=== PATIENT | male | born 1950 | race Caucasian/White ===

== ENCOUNTER → 2023-07-31 11:47 | Outpatient (REF) | payer MEDICARE, BC, SELFPAY | LOC: RAD 11:47 | PROVIDERS: ATTENDING PHYSICIAN Nurse Practitioner Family | DX: M54.50 Low back pain, unspecified (principal) | CPT/HCPCS: 72110 ==

== ENCOUNTER 2023-12-18 13:33 | Inpatient (IN) | payer MEDICARE, BC, SELFPAY ==
[2023-12-18] VITALS (14 sets, daily range): BP systolic 40–166; BP diastolic 66–88; BMI 35.7
--- NOTE | 2023-12-18 11:05 | ED.GENMED ---
History of Present Illness
General
Chief Complaint: Abdominal Symptoms
Source: patient
Exam Limitations: none
Time Seen by Provider: 12/18/23 10:51
History of Present Illness
History of Present Illness:
73-year-old male presents complaining of right sided abdominal pain since 2 days ago. Is been constant in nature. He states he has a full sensation in the abdomen with associated large amount of belching. No vomiting. He has been moving his
bowels. Prior surgical history includes prostatectomy and open heart surgery. The pain does not radiate to the back. States is having trouble sleeping secondary to the pressure in his abdomen seen by family doctor earlier today and sent here for
evaluation
Past History
Past History
ED Past Medical History: CAD, HTN, Other (Kidney stones, arthritis, seasonal allergies ), Other (Fatty liver ) and Other (Morbid obesity )
ED Past Surgical History: Other (Perirectal abscess drainage, kidney stone removal. )
Social History
Tobacco: Non-smoker
Personal:
Living: with family
Employment: Employed
Phy Exam
Physical Exam
Physical Exam:
General: Well-appearing male no acute respiratory distress
HEENT: Normocephalic atraumatic
Heart: Regular rate and rhythm no murmurs
Lungs: Clear no wheeze
Abdomen soft but tender to the right upper quadrant. No guarding rebound normal bowel sounds
Extremities: No cyanosis, mild edema
Course
Orders/Labs/Results
Orders:
Orders
12/18/23 11:04
CT Abd/pelvis W Iv Cont Urgent
Comment:
Reason For Exam: right abdominal pain
12/18/23 11:10
Complete Blood Count/With Diff Urgent
Comprehensive Metabolic Panel Urgent
Lipase Urgent
12/18/23 11:47
Ondansetron Injectable [Zofran] 4 mg IV NOW STA
12/18/23 12:43
NSS 500mL Bolus over 1 hr 0.9% Sodium Chloride 500 ml [Nss] 500 ml IV BOLUS
Zosyn 3.375 grams IVPB NOW Piperacillin/Tazo 3.375 Gram [Zosyn] 3.375 gram in 50 ml IV NOW
Abnormal Lab Results
12/18/23
11:10
WBC 17.7 H 10^3/uL
(4.8-10.8)
MCH 32.6 H pg
(27.0-31.0)
RDW 11.1 L %
(11.5-14.5)
MPV 11.1 H fL
(7.4-10.4)
Abs Immat Gran (auto) 0.1 H 10^3/uL
(0-0.05)
Absolute Neuts (auto) 16.0 H 10^3/uL
(1.4-6.5)
Absolute Lymphs (auto) 0.3 L 10^3/uL
(1.2-3.4)
Absolute Monos (auto) 1.3 H 10^3/uL
(0.1-0.6)
Immature Gran % 0.6 H %
(0-0.5)
Neutrophils % 90.6 H %
(42.2-75.2)
Lymphocytes % 1.5 L %
(20.5-51.1)
Sodium 133 L mmol/L
(135-145)
Chloride 94 L mmol/L
(98-107)
Glucose 183 H mg/dl
(70-99)
Calcium 10.5 H mg/dl
(8.4-10.2)
Total Bilirubin 2.2 H mg/dl
(0.2-1.3)
12/18/23 11:10
12/18/23 11:10
Vital Signs
Initial and Last Documented VS:
Initial Vital Signs
Temp Pulse Resp BP Pulse Ox
98.6 F 93 18 166/87 95
12/18/23 10:27 12/18/23 10:27 12/18/23 10:27 12/18/23 10:27 12/18/23 10:27
Last Documented Vital Signs
Temp Pulse Resp BP Pulse Ox
98.0 F 89 18 166/87 93
12/18/23 10:34 12/18/23 11:33 12/18/23 11:33 12/18/23 10:34 12/18/23 11:33
MDM/Problems Addressed
Differential Diagnosis Includes:
Right sided abdominal pain. Consider biliary colic cholecystitis gastritis bowel obstruction
Quite tender on exam. Labs pending. Will order CT.
*Critical Care Note
Total Time (30-74mins, 75-104mins- exclusive of procedures): Not Applicable
Update Note
Update Note:
Workup shows leukocytosis with a white count of 17.7. Total bilirubin is 2.2. CT demonstrates acute cholecystitis. Discussed with general surgery who saw the patient. Patient is with other medical comorbidities including coronary artery disease
requiring CABG, hypertension will admit to medicine
ED Attending Note
-
Portions of this chart may have been created with voice recognition software.� Occasional wrong word or��sound alike� substitutions may have occurred due to the inherent limitations of voice recognition software.
Discharge Plan
Departure
Date of Disposition: 12/18/23
Time of Disposition: 12:44
Admit to: Med/Surg
Presentation/result/management discussed w/ accepting MD/DO: Hospitalist
Prescriptions:
No Action
albuterol sulfate 1 PUFF HFA aerosol inhaler
1 puff inhalation PRN PRN (Reason: SOB)
cyclobenzaprine 10 mg Tablet
10 mg PO TID PRN (Reason: back pain)
Patient Comments:
last taken about 1 year ago
atorvastatin 40 mg Tablet
40 mg PO HS
cetirizine 10 mg Tablet
10 mg PO DAILY
acetaminophen 500 mg Tablet
1,000 mg PO Q6H PRN (Reason: pain)
amlodipine 10 mg Tablet
10 mg PO DAILY
ibuprofen [Advil] 200 mg Tablet
400 - 600 mg PO Q6H PRN (Reason: pain)
nitroglycerin [Nitrostat] 0.4 mg Tablet, Sublingual
0.4 mg SUBLINGUAL Q5-15M PRN (Reason: CP)
aspirin [Baby Aspirin] 81 mg Tablet,Chewable
81 mg PO DAILY
benazepril 40 mg Tablet
30 mg PO DAILY
fluticasone propionate 50 mcg/actuation [place],Suspension
1 spray INTRANASAL DAILY
vitamin B complex Capsule
1 cap PO DAILY
Daily Multi 18-400 mg-mcg Tablet
1 tab PO DAILY
cholecalciferol (vitamin D3) [Vitamin D3] 25 mcg (1,000 unit) Tablet,Chewable
25 mcg PO DAILY
melatonin 10 mg Tablet
10 mg PO HS
Liver Supplement
2 cap PO Q48H
Mushroom
2 cap PO DAILY
ashwagandha root extract
1 dose PO Q48H
echinacea
1 dose PO PRN MDD sickness PRN (Reason: c)
turmeric
1,000 mg PO DAILY
tamsulosin 0.4 mg Capsule
0.4 mg PO DAILY
phenazopyridine [Phenazodine] 100 mg Tablet
100 mg PO TID
Interventions
Interventions:
*Risk Screen - Suicide Last Done: 12/18/23 10:34
*General Assessment Last Done: 12/18/23 10:55
*Neglect/Abuse Screening Last Done: 12/18/23 10:34
ED- Fall Risk Assessment Last Done: 12/18/23 10:55
MX-Qqalsm-Nmhgxlzlvh Assessment Last Done: 12/18/23 10:55
Discharge Date and Time
Print Language: MOHAWK
[2023-12-18 11:22] LABS: % Basophils 0.2 % (0-2); % Immature Granulocytes 0.6 % (0-0.5); % Lymphocytes 1.5 % (20.5-51.1); % Monocytes 7.1 % (1.7-9.3); % Neutrophils 90.6 % (42.2-75.2); Absolute Immature Granulocytes 0.1 10^3/uL (0-0.05); Absolute Lymphocytes 0.3 10^3/uL (1.2-3.4); Absolute Monocytes 1.3 10^3/uL (0.1-0.6); Hematocrit 45.8 % (39.0-52.0); Hemoglobin 16.9 g/dL (13.0-18.0); Mean Corp Hgb Conc. 36.9 g/dL (33.0-37.0); Mean Corpuscular Hgb 32.6 pg (27.0-31.0); Mean Corpuscular Volume 88.4 fL (80.0-94.0); Mean Platelet Volume 11.1 fL (7.4-10.4); Nucleated Red Blood Cells % 0 % (-); Platelet Count 181 10^3/uL (130-400); Red Blood Cell Count 5.18 10^6/uL (4.70-6.10); Red Cell Dist. Width 11.1 % (11.5-14.5); White Blood Cell Count 17.7 10^3/uL (4.8-10.8)
[2023-12-18] MEDS: ZOFRAN 4 MG IV ×2 (11:48→20:26)
[2023-12-18 11:52] LABS: ALT (SGPT) 28 U/L (0-50); AST (SGOT) 29 U/L (17-59); Albumin 4.7 g/dl (3.5-5.0); Alkaline Phosphatase 79 U/L (38-126); Blood Urea Nitrogen 14 mg/dl (9-20); Calcium 10.5 mg/dl (8.4-10.2); Carbon Dioxide 23 mmol/L (22-30); Chloride 94 mmol/L (98-107); Glucose 183 mg/dl (70-99); Lipase 99 U/L (23-300); Potassium 4.1 mmol/L (3.5-5.1); Sodium 133 mmol/L (135-145); Total Bilirubin 2.2 mg/dl (0.2-1.3); Total Protein 7.1 g/dl (6.3-8.2); eGFR > 60.00
--- NOTE | 2023-12-18 12:45 | W.SUR.PREOP ---
Pre-Operative Surgical Note
-
I have examined this patient prior to the performance of the scheduled procedure.
The patient's condition is unchanged from the time of the current History and
Physical and the patient is able to undergo the scheduled procedure.
[2023-12-18] MEDS: NSS 500 IV (13:04)
[2023-12-18] MEDS: ZOSYN 50 IV ×2 (13:04→22:28)
--- NOTE | 2023-12-18 13:06 | CON.GS ---
Consultation
-
Date/Time Consultation Requested: 12/18/23 1240
Requesting Provider: Josephinemo
Reason for Consultation: Cholecytistis
Medical History
-
Chief Complaint: RUQ pain
History of Present Illness:
Mr Guevara is a 73 yo male with a history of UHR with proceed ventral patch in 2009, CAD with CABG in 2011 and prostate ca with robotic prostatectomy 01/2023 who presents with bloating and belching which began early on Monday (12/16/23) morning
around 4am and has persisted since that time. He has felt a pressure in his abdomen since that time and poor appetite. He tried soup initially on date of onset and felt this made things worse and so only ate some crackers yesterday. He presented to
his family doctor this morning for evaluation and had noted RUQ tenderness on exam and was advised to present to the ED for evaluation.
Past Medical History
Past Medical History: Cancer (prostate ca tx with surgery, radiation consult later this week as he had recent rise in PSA with abnl imaging at [facility]), HTN, Hypercholesterolemia and Other (renal stones, candy)
Past Surgical History: Cardiac (CABGx2 2011), Hernia Repair (umbilical hernia repair with Proceed ventral patch 2009 (Dr. Darnell)), Tonsilectomy, Urological (Ureteroscopy for stones, RAL prostatectomy at [facility]) and Other (colonoscopy 2022)
Social History
Tobacco: Former Smoker
Alcohol: Occasional
Family History
Family History: Reviewed & Not Pertinent
Allergies / Home Medications
Allergy/AdvReac Type Severity Reaction Status Date / Time
cat dander Allergy asthma Verified 08/23/22 07:30
mold Allergy asthma Verified 08/23/22 07:30
pollen extracts Allergy asthma Verified 08/23/22 07:30
�Medication �Instructions �Recorded �Confirmed �Type
albuterol sulfate 90 mcg/actuation 1 puff inhalation R Q6HPRN PRN SOB 12/28/10 12/18/23 History
aerosol inhaler
amlodipine 10 mg tablet 10 mg PO DAILY 07/29/22 12/18/23 History
aspirin 81 mg chewable tablet 81 mg PO DAILY 07/29/22 12/18/23 History
atorvastatin 40 mg tablet 40 mg PO HS 07/29/22 12/18/23 History
cetirizine 10 mg tablet 10 mg PO DAILYPRN PRN allergies 07/29/22 12/18/23 History
cholecalciferol (vitamin D3) 25 25 mcg PO DAILY 07/29/22 12/18/23 History
mcg (1,000 unit) chewable tablet
(Vitamin D3)
fluticasone propionate 50 1 spray intranasal DAILYPRN PRN 07/29/22 12/18/23 History
mcg/actuation nasal allergies
spray,suspension
melatonin 10 mg tablet 10 mg PO HSPRN PRN sleep 07/29/22 12/18/23 History
nitroglycerin 0.4 mg sublingual 0.4 mg sublingual [id number] PRN CP 07/29/22 12/18/23 History
tablet (Nitrostat)
Lactobac no.2-Bifidobac no.1-S. 1 cap PO DAILY 12/18/23 12/18/23 History
thermo 112.5 billion cell capsule
(Visbiome)
benazepril 20 mg tablet 30 mg PO DAILY 12/18/23 12/18/23 History
folic acid-vit B6-vit B12 2.5 1 tab PO DAILY 12/18/23 12/18/23 History
mg-25 mg-2 mg tablet (WesTab Max)
mirabegron 50 mg tablet,extended 50 mg PO DAILY 12/18/23 12/18/23 History
release 24 hr (Myrbetriq)
qnhewttk-rgf-ssige acid 0.4 1 tab PO DAILY 12/18/23 12/18/23 History
mg-lycopene 300 mcg-lutein 250 mcg
tablet (Centrum Silver)
tadalafil 5 mg tablet 5 mg PO DAILYPRN PRN ed 12/18/23 12/18/23 History
turmeric 400 mg capsule 400 mg PO DAILY 12/18/23 12/18/23 History
Review of Systems
-
History Source: Patient and Family
All other systems: Negative unless noted
A 10 point review of systems was completed, and was negative except as per HPI.
Physical Exam
Vital Signs
Temp Pulse Resp BP Pulse Ox
98.0 F 89 18 166/87 93
12/18/23 10:34 12/18/23 11:33 12/18/23 11:33 12/18/23 10:34 12/18/23 11:33
Lab Results
12/18/23 11:10
12/18/23 11:10
WBC 17.7 10^3/uL (4.8-10.8) H 12/18/23 11:10
Hgb 16.9 g/dL (13.0-18.0) 12/18/23 11:10
Hct 45.8 % (39.0-52.0) 12/18/23 11:10
Plt Count 181 10^3/uL (130-400) 12/18/23 11:10
Abs Immat Gran (auto) 0.1 10^3/uL (0-0.05) H 12/18/23 11:10
Neutrophils % 90.6 % (42.2-75.2) H 12/18/23 11:10
Physical Exam
General: Well Developed and Well Nourished
HEENT: Moist Mucous Membranes
Respiratory: Non Labored Respirations
GI: Soft, Tender (RUQ) and Obese
Skin: Warm and Dry
Neuro: Awake, Alert and AO x 3
Psych: Calm
Data Reviewed
-
CT Scan: Image Personally Visualized and interpreted, Report Reviewed by me, Discussed with Physician, Discussed with Patient and Discussed with Family
Labs: Labs Reviewed by me, Discussed with Physician, Discussed with Patient and Discussed with Family
Old Records: Reviewed
Assessment / Plan
-
Mr Guevara is a 73 yo male with a history of UHR with proceed ventral patch in 2009, CAD with CABG in 2011 and prostate ca with robotic prostatectomy 01/2023 who presents with bloating and belching which began early on Monday (12/16/23) morning
around 4am and has persisted with associated diminished appetite. RUQ tenderness on exam noted today by PCP prompting evaluation in the ED. On CT imaging there are multiple gallstones present within the neck of the gallbladder with wall thickening
and inflammatory stranding present consistent with acute calculous cholecystitis. He has noted leukocytosis of 17.7 with mildly elevated bilirubin of 2.2. He is afebrile with stable vital signs.
--Would admit to medicine service
--Keep NPO for tentative OR later today
--Consult placed to Cardiology for preoperative risk stratification: known to Dr. Parikh. Check preop EKG
--IV zosyn given in ED, would continue
--Analgesics/antiemetics as needed
--SCD's for VTE ppx
--- NOTE | 2023-12-18 13:23 | HPS.HSE ---
Family Physician
-
Family Physician: Blanca Victoria
Chief Complaint
-
Abdominal Pain
History of Present Illness
Patient is a 73-year-old male past with coronary artery disease, hypertension, hyperlipidemia, prostate cancer, fatty liver, and exercise-induced asthma who presents with abdominal pain. Patient reports he woke up around 4AM on Monday with
abdominal pain. He notes a generalized abdominal discomfort associated with bloating and increased belching. He admits to nausea without vomiting. He denies diarrhea. He denies fever, sweats or chills. He denies similar episodes in the past.
Medical History
Past Medical History
Past Medical History: Reports Other
Additional Past Medical History:
Coronary Artery Disease s/p CABG
Essential Hypertension
Hyperlipidemia
Exercise Induced Asthma
Prostate Cancer s/p Prostatectomy
Nephrolithiasis
Fatty Liver
Past Surgical History: Reports Other
Additional Past Surgical History:
CABG
Prostatectomy
Laser Lithotripsy and Ureteral Stent
Tonsillectomy
Vasectomy
Carpal Tunnel Release
Social History
Tobacco: Former Smoker (Quit over 40 years ago)
Alcohol: Other (2 alcoholic beverage per week)
Personal:
Living: With Family
Family History
Family History: Not pertinent
Allergies / Home Medications
Allergies reflects when Allergies were last updated in [facility].
Home Medications with original date entered in [facility]
Allergy/Medication List:
Allergies
Allergy/AdvReac Type Severity Reaction Status Date / Time
cat dander Allergy asthma Verified 08/23/22 07:30
mold Allergy asthma Verified 08/23/22 07:30
pollen extracts Allergy asthma Verified 08/23/22 07:30
Home Medications
albuterol sulfate 90 mcg/actuation aerosol inhaler 1 puff inhalation R Q6HPRN PRN SOB 12/28/10
amlodipine 10 mg tablet 10 mg PO DAILY 07/29/22
aspirin 81 mg chewable tablet 81 mg PO DAILY 07/29/22
atorvastatin 40 mg tablet 40 mg PO HS 07/29/22
cetirizine 10 mg tablet 10 mg PO DAILYPRN PRN allergies 07/29/22
cholecalciferol (vitamin D3) 25 mcg (1,000 unit) chewable tablet (Vitamin D3) 25 mcg PO DAILY 07/29/22
fluticasone propionate 50 mcg/actuation nasal spray,suspension 1 spray intranasal DAILYPRN PRN allergies 07/29/22
melatonin 10 mg tablet 10 mg PO HSPRN PRN sleep 07/29/22
nitroglycerin 0.4 mg sublingual tablet (Nitrostat) 0.4 mg sublingual [id number] PRN CP 07/29/22
Lactobac no.2-Bifidobac no.1-S. thermo 112.5 billion cell capsule (Visbiome) 1 cap PO DAILY 12/18/23
benazepril 20 mg tablet 30 mg PO DAILY 12/18/23
folic acid-vit B6-vit B12 2.5 mg-25 mg-2 mg tablet (WesTab Max) 1 tab PO DAILY 12/18/23
mirabegron 50 mg tablet,extended release 24 hr (Myrbetriq) 50 mg PO DAILY 12/18/23
uhdoneie-eod-zwyew acid 0.4 mg-lycopene 300 mcg-lutein 250 mcg tablet (Centrum Silver) 1 tab PO DAILY 12/18/23
tadalafil 5 mg tablet 5 mg PO DAILYPRN PRN ed 12/18/23
turmeric 400 mg capsule 400 mg PO DAILY 12/18/23
Review of Systems
-
A 12 point ROS was completed and negative except as noted: Yes
Constitutional: Denies Fever or Chills
Respiratory: Denies Cough or Trouble Breathing
Cardiac: Denies Chest Pain or Palpitations
Abdomen/GI: Reports See HPI
Physical Exam
Vital Signs
Vital Signs
Temp Pulse Resp BP Pulse Ox
98.0 F 89 18 166/87 93
12/18/23 10:34 12/18/23 11:33 12/18/23 11:33 12/18/23 10:34 12/18/23 11:33
Physical Exam
General: Comfortable and Conversant
HEENT: Anicteric and Moist mucous membranes
Respiratory: Clear and Non Labored Respirations
Cardiac: S1/S2 and Regular Rhythm
GI: Soft, Tender (Right Upper Quadrant without Rebound or Guarding) and Distended
Rectal: Deferred by Provider
Musculoskeletal: No Clubbing, No Cyanosis and No Edema
Skin: Warm and Dry
Neuro: Awake, Alert, Oriented and Nonfocal/grossly intact
Psych: Calm
Laboratory Results
-
12/18/23 11:10
12/18/23 11:10
Laboratory Results
Total Bilirubin 2.2 mg/dl (0.2-1.3) H 12/18/23 11:10
AST 29 U/L (17-59) 12/18/23 11:10
ALT 28 U/L (0-50) 12/18/23 11:10
Alkaline Phosphatase 79 U/L (38-126) 12/18/23 11:10
Lipase 99 U/L (23-300) 12/18/23 11:10
Abd/Pelvis CT Scan:
1. Findings consistent with acute cholecystitis.
2. Hepatic steatosis.
3. Atrophic left kidney. 4.5 cm right parapelvic cyst with mild right-sided perinephric stranding, similar compared to the prior CT urogram.
Data Reviewed
-
CT Scan: Report Reviewed by me
Lab Data: Labs Reviewed by me
Impression/Plan
-
Sepsis secondary to Acute Cholecystitis
-Consult Surgery
-Continue NPO/IVFs
-Continue Zosyn
Coronary Artery Disease s/p CABG
-Cardiology consult for pre-op eval
-Check ECG
-Resume aspirin when OK with surgery
Essential Hypertension
-Continue amlodipine and benazepril with hold parameters
Hyperlipidemia
-Hold atorvastatin
Prostate Cancer s/p Prostatectomy in Jan 2023
-Recently elevated PSA and scheduled to start a coarse of radiation
Fatty Liver
-Monitor LFTs
Class 2 Obesity
-Encourage weight loss
-Affects all aspects of care
DVT proph: SCDs
Code Status: Full Code
--- NOTE | 2023-12-18 13:40 | CON.CAR ---
Addendum entered and electronically signed by Hamilton Silva MD 12/18/23 17:50:
Pleasant 73-year-old man with history of CAD and CABG who presents with acute cholecystitis and is scheduled for urgent cholecystectomy. Currently he has been asymptomatic from a cardiac standpoint, can walk more than 30 minutes on a daily basis
without exertional chest discomfort, shortness of breath, etc. He was last seen in our office in late 2022. In 2017 a sestamibi study showed a small fixed inferoapical defect consistent with soft tissue attenuation. In 2020 he had an echo showing
an EF of 51% with mild LVH, mild MR and aortic sclerosis.
Meds: Per summary screen
PMH: CAD, hypertension, hyperlipidemia, left bundle branch block, obstructive sleep apnea, PVCs, renal calculi prostate cancer
PSH: Proximal LAD PCI December 2010, CABG times 04/2011, VIRK to LAD and SVG to OM1, prostatectomy 2022
SH: Remote smoker,, rare alcohol, , retired
FH: Noncontributory
Allergies: None to medication
ROS: Negative except for abdominal discomfort
166/87, pulse 90s,36.7, respiratory 20, head neck exam unremarkable, lungs are clear, regular rate and rhythm with paradoxically split S2, no obvious murmurs, JVD hard to assess, abdomen tender mostly in right upper quadrant, extremities with trace
to 1+ edema pulses palpable, neuro nonfocal
White count 17.7, hemoglobin 16.9, left shift, sodium 133, potassium 4.1, BUN and creatinine 14 and 0.7, bilirubin 2.2, transaminases normal,
EKG sinus rhythm left atrial enlargement, left bundle branch block, left axis
CT of abdomen and pelvis reviewed
Impression:
Acute cholecystitis
CAD/history of CABG 2011, LAD PCI 2010
Left bundle branch block
Hypertension
Hyperlipidemia
Obstructive sleep apnea
PVCs
Prostate cancer
Plan:
He appears stable from a cardiac standpoint and has good functional capacity without cardiac symptoms. He seems medically optimized despite his acute presentation and can proceed as planned with surgery at acceptable perioperative cardiac risk. No
additional testing needed. Continue outpatient medical regimen, holding benazepril and/or amlodipine if needed for hypotension. Continue aspirin.
Original Note:
Consultation
Consultation Request
Date/Time Consultation Requested: 12/18/2023
Date/Time Consultation Performed: 12/18/2023 at 1330
Requesting Provider: Dr. Horne
Performing Provider: Rosa Armenta PA-C for Dr. MARILOU Silva
Reason for Consultation: Pre-Op Eval
Medical History
-
History of Present Illness:
HPI: Jarek is a 73 year old male with PMH of CAD s/p CABG x 2, hypertension, hyperlipidemia, LBBB, TENA, frequent PVCs, and prostate cancer. [facility]. He first noted the pain yesterday and had associated
belching and bloating as well as nausea. He denies any diarrhea or vomiting. In ER, he was found to have elevated WBC of 17.[address] abdomen/pelvis with findings consistent with acute cholecystitis. He was seen by surgery in the ER and plan is for
laparoscopic cholecystectomy today. Cardiology consulted for pre-op evaluation. EKG stable. He remains active, walking 30+ minutes on a daily basis and he has no exertional symptoms. He is compliant with all of his medications. No complaints
currently other than feeling 'uncomfortable' related to abdominal pain.
PMH:
CAD
s/p prox LAD stent 12/2010
s/p CABG x2 with VIRK to LAD and SVG to OM1 05/27/2011
HTN
HLD
LBBB
TENA
Frequent PVCs
Prostate cancer s/p prostatectomy 02/15/2023
h/o hematuria with Plavix
renal stones and bladder polyps with removal and cauterization 04/2011
h/o tobacco abuse, quit 1982
Past Medical History
Past Medical History: Other (In HPI)
Past Surgical History: Cardiac (LAD stent 2010, CABG x 2 05/2011), Tonsilectomy and Other (prostatectomy, cystoscopy/ureteroscopy, umbilical hernia repair)
Social History
Tobacco: Former Smoker
Alcohol: Occasional
Drug: None
Personal:
Living: With Family
Employment: Retired
Family History
Family History: CAD, Cancer and Diabetes
Allergies / Home Medications
Allergy/AdvReac Type Severity Reaction Status Date / Time
cat dander Allergy asthma Verified 08/23/22 07:30
mold Allergy asthma Verified 08/23/22 07:30
pollen extracts Allergy asthma Verified 08/23/22 07:30
�Medication �Instructions �Recorded �Confirmed �Type
albuterol sulfate 90 mcg/actuation 1 puff inhalation R Q6HPRN PRN SOB 12/28/10 12/18/23 History
aerosol inhaler
amlodipine 10 mg tablet 10 mg PO DAILY 07/29/22 12/18/23 History
aspirin 81 mg chewable tablet 81 mg PO DAILY 07/29/22 12/18/23 History
atorvastatin 40 mg tablet 40 mg PO HS 07/29/22 12/18/23 History
cetirizine 10 mg tablet 10 mg PO DAILYPRN PRN allergies 07/29/22 12/18/23 History
cholecalciferol (vitamin D3) 25 25 mcg PO DAILY 07/29/22 12/18/23 History
mcg (1,000 unit) chewable tablet
(Vitamin D3)
fluticasone propionate 50 1 spray intranasal DAILYPRN PRN 07/29/22 12/18/23 History
mcg/actuation nasal allergies
spray,suspension
melatonin 10 mg tablet 10 mg PO HSPRN PRN sleep 07/29/22 12/18/23 History
nitroglycerin 0.4 mg sublingual 0.4 mg sublingual [id number] PRN CP 07/29/22 12/18/23 History
tablet (Nitrostat)
Lactobac no.2-Bifidobac no.1-S. 1 cap PO DAILY 12/18/23 12/18/23 History
thermo 112.5 billion cell capsule
(Visbiome)
benazepril 20 mg tablet 30 mg PO DAILY 12/18/23 12/18/23 History
folic acid-vit B6-vit B12 2.5 1 tab PO DAILY 12/18/23 12/18/23 History
mg-25 mg-2 mg tablet (WesTab Max)
mirabegron 50 mg tablet,extended 50 mg PO DAILY 12/18/23 12/18/23 History
release 24 hr (Myrbetriq)
bautubjl-nnp-hrond acid 0.4 1 tab PO DAILY 12/18/23 12/18/23 History
mg-lycopene 300 mcg-lutein 250 mcg
tablet (Centrum Silver)
tadalafil 5 mg tablet 5 mg PO DAILYPRN PRN ed 12/18/23 12/18/23 History
turmeric 400 mg capsule 400 mg PO DAILY 12/18/23 12/18/23 History
Review of Systems
-
History Source: Patient
All other systems: Negative unless noted
Physical Exam
Vital Signs
Temp Pulse Resp BP Pulse Ox
98.0 F 89 20 164/88 94
12/18/23 10:34 12/18/23 13:30 12/18/23 13:30 12/18/23 13:30 12/18/23 13:30
Lab Results
12/18/23 11:10
12/18/23 11:10
Physical Exam
General: Well Developed, Well Nourished and No Apparent Distress
HEENT: Normocephalic, Anicteric and Moist Mucous Membranes
Respiratory: Clear and Non Labored Respirations
Cardiac: S1/S2 and Regular Rhythm
Musculoskeletal: No Clubbing and No Edema
Skin: Warm and Dry
Neuro: AO x 3 and Nonfocal/Grossly Intact
Psych: Calm
Impression / Plan
-
PCP: Dr. Behzad Donovan
Equities Analyst: Dr. Parikh
Impression:
Presented with RUQ pain
Acute cholecystitis
CAD
s/p prox LAD stent 12/2010
s/p CABG x2 with VIRK to LAD and SVG to OM1 05/27/2011
HTN
HLD
LBBB
TENA
Frequent PVCs
Prostate cancer s/p prostatectomy 02/15/2023
h/o hematuria with Plavix
renal stones and bladder polyps with removal and cauterization 04/2011
h/o tobacco abuse, quit 1982
Lexiscan stress test 01/08/2018: Perfusion imaging reveals a small area of mildly decreased perfusion that is fixed in the inferior apical segment consistent with soft tissue attenuation. EF 45%.
Echo 12/10/2020: EF 51%, mild cLVH, mild MR, aortic sclerosis without stenosis
Plan:
-Presented with RUQ abdominal pain. Found to have acute cholecystitis. Plan is for laparoscopic cholecystectomy today, 12/17.
-Patient feeling well. Pain well controlled.
-Cardiology asked to evaluate for pre-op risk stratification.
-Patient has been stable from cardiac standpoint. He remains active at baseline, exercising on a daily basis with no exertional symptoms.
-He has had no angina and has not needed to take any SL nitro.
-Prior stress test in 2018 with no evidence of ischemia. Known h/o CAD, continue aspirin 81mg daily.
-EKG reviewed in ER, stable, SR with LBBB which is chronic.
-Prior echo 12/10/2020 with preserved EF and mild MR.
-He is ok to proceed from a cardiac standpoint for cholecystectomy without further testing. Risk is not prohibitive.
HPI: Jarek is a 73 year old male with PMH of CAD s/p CABG x 2, hypertension, hyperlipidemia, LBBB, TENA, frequent PVCs, and prostate cancer. [facility] RUQ [facility]. He first noted the pain yesterday and had associated
belching and bloating as well as nausea. He denies any diarrhea or vomiting. In ER, he was found to have elevated WBC of 17.[address] abdomen/pelvis with findings consistent with acute cholecystitis. He was seen by surgery in the ER and plan is for
laparoscopic cholecystectomy today. Cardiology consulted for pre-op evaluation. EKG stable. He remains active, walking 30+ minutes on a daily basis and he has no exertional symptoms. He is compliant with all of his medications. No complaints
currently other than feeling 'uncomfortable' related to abdominal pain.
Data Reviewed
-
EKG: Tracing Personally Visualized and interpreted
CT Scan: Report Reviewed by me
Labs: Labs Reviewed by me
Old Records: Reviewed
--- NOTE | 2023-12-18 13:58 | W.PN.UPDATE ---
Update Note
Progress Note Update
This is an addendum to the H&P written by Candice Salgado 12/18/2023. Patient seen and examined independently with PA.
73-year-old male past medical history of CAD status post CABG, prostate cancer status post surgery with plan for radiation in the near future, hypertension, hypercholesteremia, renal stones, presenting with abdominal pain since yesterday with some
mild nausea.
On examination he is tender diffusely but worst in the right upper quadrant. Labs show leukocytosis. CT abdomen pelvis shows acute cholecystitis. N.p.o. for surgery later today. General surgery consulted. Zosyn. IV fluids. Hold aspirin for
now. Cardiology consulted for preoperative clearance.
--- NOTE | 2023-12-18 17:55 | W.IMMPOSTOP ---
Addendum entered and electronically signed by Tayo Horne MD 12/18/23 18:19:
Assisting Surgeon: Jm Brito MD
Original Note:
Surgical Immed Post Op Note
-
Primary Surgeon: Tayo Horne MD
Assisting Surgeon: None
Nuts And Bolts Assembler: JOSSE Rivas
Pre-op Diagnosis: Acute cholecystitis
Post-op Diagnosis: Same
Procedure Performed: Laparoscopic cholecystectomy with cholangiogram
Anesthesia Type: General
Specimen / Cultures: Gallbladder and contents
Estimated Blood Loss: 113 cc
Complications: None
Operative Findings: Severely inflamed gallbladder. Significant to the exposing the cystic triangle despite decompression of the gallbladder due to patient body habitus. Top-down cholecystectomy performed with fulguration of the posterior
gallbladder wall. Multiple mixed stones identified and removed. The cystic duct infundibular junction was identified and isolated circumferentially. The ostium of the cystic duct was identified and threaded with a cholangiocatheter. 2
cholangiograms were attempted but we were unable to successfully illuminate the common bile duct. The cystic duct stump was ligated with a 0 PDS Endoloop. A 19 [place] round Babatunde drain was inserted through the right lateralmost port and secured at
the skin with a 2-0 nylon suture. It was brought up the right colic gutter across the hepatic flexure and our surgical field.
POST OP PLAN:
Imaging: None
Labs: Routine AM
Diet: clears
Analgesia: Tylenol 650mg q6 Harry, Nelli 5mg q6 PRN, Dilaudid 0.5mg q2h PRN
Neuro/vascular checks: q4h
AC/AP: Hold Therapeutic AC, Ok for DVT PPx
Activity: Ad Selma
Wound/Incisions/Drains: Routine, SANTHOSH to bulb suction.
Abx: Continue antibiotics x 7 days
Dispo: RNF
[2023-12-18] MEDS: NSS 1000 IV (20:10)
[2023-12-18] MEDS: TYLENOL 650 MG PO (20:26)
[2023-12-18] MEDS: DULCOLAX 5 MG PO (22:29)
[2023-12-18] MEDS: ROXICODONE 5 MG PO (22:29)
--- NOTE | 2023-12-19 01:03 | TRANSFER ---
Report recieved from [employer] SETTERKE[employer] Epps. 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 R SANTHOSH w s/s drainage. VS WNL. Call stapels within reach, bed in lowest position.
[2023-12-19] MEDS: TUMS CHEWABLE TABLET 400 MG PO (03:14)
[2023-12-19] MEDS: ZOSYN 50 IV ×4 (03:14→22:21)
[2023-12-19 03:30] VITALS: BP 151/78
[2023-12-19] MEDS: ROXICODONE 5 MG PO (03:45)
[2023-12-19 06:00] VITALS: BMI 35.5
[2023-12-19 07:31] VITALS: BP 146/84
--- NOTE | 2023-12-19 07:43 | W.PN.GS2 ---
Addendum entered and electronically signed by Al Pittman MD 12/19/23 10:13:
Patient seen and examined.
No major complaints. Abdominal discomfort well-controlled with oral medications. No nausea or vomiting. No fevers. No flatus or BM. Ambulating.
Gen: NAD
Abd: soft, mild tenderness, ND/obese, non-peritoneal, incisions c/d/i - no erythema, ecchymosis or drainage, SANTHOSH serosang, fibrinous debris
Patient is a 73 yo M POD#1 s/p laparoscopic cholecystectomy
AVSS
Labs reviewed and notable for reactive leukocytosis, downtrending bilirubin, mild bump in LFTs
Recovering well overall. No major postoperative concerns. Plan for monitoring in the hospital for an additional 24 hours for drain management and IV antibiotics. Tentative plan for removal of drain and discharged on oral antibiotics tomorrow.
-- LFD
-- Pain control: Tylenol, Toradol, Oxycodone
-- HLIV when tolerating diet
-- Abx: Zosyn, plan for 7 days total with Augmentin on DC
-- Home meds
-- DVT: Lovenox
-- Maintain SANTHOSH for now, likely DC on DC
-- Tentative plan for DC tomorrow
Original Note:
Today's Communication / Plan
-
C/w IV Abx, check drain output tomorrow, start on clear liquids, probable d/c tomorrow
Assessment / Plan
-
73 year old man POD 1 cholecystectomy w/ sepsis secondary to acute cholecystitis
##Sepsis secondary to acute cholecystitis, s/p cholecystectomy
#Cholelithiasis
- c/w IV Zosyn, transition to oral Augmentin on discharge for a 7d course
- OK to d/c IVF today and advance to Low Fat diet
- Pain control with tylenol/toradol/oxycodone
- Remove drain tomorrow
- Start DVT prophylaxis lovenox SC
Subjective Data
-
No acute events overnight. Required x2 doses of oxycodone for pain overnight, which is much improved this morning. Patient has minimal ambulatory dysfunction, but overall appears well. He had no fevers overnight.
Objective Data
-
Intake and Output
12/18/23 12/19/23 12/20/23
06:59 06:59 06:59
Intake Total 1740 / 1740
Output Total 300 / 300
Balance 1440 / 1440
Intake:
Oral fluids 840 / 840
IV fluids (Total) 800 / 800
Normosol 100 / 100
IV piggybacks 100 / 100
Output:
Drain Output (Total) 200 / 200
Right Abdomen Tyler-Vanegas 200 / 200
Urine, Voided 100 / 100
Other:
Number of approximated MODERATE 1
amounts of urine
How many times incontinent 1
Vital Signs
Temp Pulse Resp BP Pulse Ox
98.6 F 84 19 146/84 96
12/19/23 07:31 12/19/23 07:31 12/19/23 07:31 12/19/23 07:31 12/19/23 07:31
Calcium 10.5 mg/dl (8.4-10.2) H 12/18/23 11:10
Total Bilirubin 2.2 mg/dl (0.2-1.3) H 12/18/23 11:10
AST 29 U/L (17-59) 12/18/23 11:10
ALT 28 U/L (0-50) 12/18/23 11:10
Alkaline Phosphatase 79 U/L (38-126) 12/18/23 11:10
Total Protein 7.1 g/dl (6.3-8.2) 12/18/23 11:10
Albumin 4.7 g/dl (3.5-5.0) 12/18/23 11:10
Physical Exam
-
Abdominal: Soft, distended, non tender abdomen. Tympanitic to percussion in all quadrants. Laparoscopic ports are well appearing w/o erythema/induration. Drain dressing is dry, with minimal dried blood. Drain output is 200cc overnight and 20cc at
present of serosanguineous fluid. No guarding or rigidity.
[2023-12-19 08:14] LABS: % Basophils 0.1 % (0-2); % Immature Granulocytes 0.7 % (0-0.5); % Lymphocytes 2.1 % (20.5-51.1); % Neutrophils 91.1 % (42.2-75.2); Absolute Immature Granulocytes 0.2 10^3/uL (0-0.05); Absolute Lymphocytes 0.4 10^3/uL (1.2-3.4); Absolute Monocytes 1.3 10^3/uL (0.1-0.6); Hematocrit 49.4 % (39.0-52.0); Hemoglobin 17.6 g/dL (13.0-18.0); Mean Corp Hgb Conc. 35.6 g/dL (33.0-37.0); Mean Corpuscular Hgb 32.6 pg (27.0-31.0); Mean Corpuscular Volume 91.5 fL (80.0-94.0); Mean Platelet Volume 11.9 fL (7.4-10.4); Nucleated Red Blood Cells % 0 % (-); Platelet Count 241 10^3/uL (130-400); Red Cell Dist. Width 11.7 % (11.5-14.5); White Blood Cell Count 20.9 10^3/uL (4.8-10.8)
--- NOTE | 2023-12-19 08:16 | OR.RPT ---
Operative Report
Operative Report
Patient Name: Jarek Guevara
: 1950
Date of Operation: 12/19/2023
Preoperative Diagnosis: Acute cholecystitis
Postoperative Diagnosis: Same
Procedure(s):
Laparoscopic Cholecystectomy with Cholangiogram
Surgeon(s):
Dr. Horne
Adjunct Psychology Instructor(s):
Dr. Brito
JOSSE Rivas
Anesthesia: General
Estimated Blood Loss: 113 cc
Urine Output: None
Drains/Lines/Implants: 19 Turkish round Babatunde drain, across the gallbladder fossa
Specimens:
1. Gallbladder and contents
HPI/Surgical Indications:
This is a 73-year-old morbidly obese male with significant cardiac history who presents with a 1 to 2-day history of right upper quadrant abdominal pain in the setting of similar attacks previously. Exam, labs and imaging are consistent with acute
cholecystitis. Risks/Benefits/Alternatives were discussed at length, and the patient agreed to proceed with surgery. He did obtain cardiac clearance prior to the procedure as well.
Operative Findings: Severely inflamed gallbladder. Significant to the exposing the cystic triangle despite decompression of the gallbladder due to patient body habitus. Top-down cholecystectomy performed with fulguration of the posterior
gallbladder wall. Multiple mixed stones identified and removed. The cystic duct/infundibular junction was identified and isolated circumferentially. The ostium of the cystic duct was identified and threaded with a cholangiocatheter. 2
cholangiograms were attempted but we were unable to successfully illuminate the common bile duct. The cystic duct stump was ligated with a 0 PDS Endoloop. A 19 [place] round Babatunde drain was inserted through the right lateralmost port and secured at
the skin with a 2-0 nylon suture. It was brought up the right colic gutter across the hepatic flexure and our surgical field.
Procedure Description:
The patient was brought to the Operating Room and placed in the supine position with one arm tucked. Following uneventful induction of general endotracheal anesthesia, an orogastric tube was placed. The abdomen was prepped and draped in the usual
sterile fashion. A timeout was performed confirming the procedure, consent, and that IV antibiotics were infused and sequential compression devices were confirmed to be on. The abdomen was entered using a left subcostal technique followed by a 5 mm
right upper quadrant Optiview trochar. Pneumoperitoneum to 15 mmHg pressure was obtained without difficulty and we confirmed that no injury had occurred during our entry. The patient was positioned in reverse Trendelenberg and rotated with the right
side up slightly. Two 5mm trocars were then placed along the right subcostal margin, and a 12 mm port in the epigastrium. The gallbladder, which was visibly distended was emptied using a decompressing needle through the fundus of the gallbladder
with evacuation of hydrops before a locking grasping forceps was placed on the fundus of the gallbladder where it was then retracted cephalad and to the right. Using appropriate grasping instruments, the peritoneum overlying the triangle of Calot
was incised and extended superiorly on both the anterior and posterior gallbladder wood. However there was significant inflammation in this area and so was difficult to proceed as there was significant bleeding and visualization was very poor. We
thus elected to switch to a top-down cholecystectomy entering the gallbladder up high and marching down inferiorly both medially and laterally using a laparoscopic bipolar energy device. A 4 x 4 Ray-Najma was placed into the abdomen to assist with
hemostasis and collecting any debris. The gallbladder contents were suctioned up and several mixed gallstones were removed. It was roughly at this point that Dr. Brito scrubbed in to assist with the dissection as this was a fairly challenging
gallbladder and visualization was poor due to the patient's body habitus, degree of inflammation and impacted stones. The anterior plate of the gallbladder was removed until we were able to get to the infundibulum and identified the ostium of the
gallbladder where several small stones were impacted which were freed and removed. Once the stones were removed the tissue surrounding the infundibulum was a little bit softer and easier to manipulate and we were able to get around the duct
completely. A small blood vessel, likely the cystic artery, or a collateral thereof was isolated, clipped and divided to help expose the duct better. We were then able to get further length on the cystic duct and a cholangiocatheter was introduced
through the right upper quadrant skin using a Colby Raymond device. This was advanced into the presumed ostium of the cystic duct and a cholangiogram was attempted however there was significant leakage so this was reattempted however a similar
result occurred. At this point, we elected to abort the cholangiogram and having isolated the cystic duct, ligated it with a 0 PDS Endoloop. The infundibular portion was removed with the LigaSure device. All pieces of the gallbladder were then
placed into a Endo Catch bag and pushed to the side. The right upper quadrant was flooded with saline and suctioned until dry. Hemostasis was achieved. The posterior wall of the gallbladder which was left on the liver was fulgurated. The 4 x 4
Ray-Najma was removed as well any remaining small pieces of gallstone/sludge/debris. A thorough check was done of the right upper quadrant to ensure no gallstones were left behind. The specimen was removed and a 19 [place] round Babatunde drain was
introduced through the right lateralmost port up to the right colic gutter around the hepatic flexure and across the surgical field. This was secured at the skin with a 2-0 nylon suture. Excellent hemostasis was assured. All remaining trocars were
then removed and the 12 mm trocar site was closed using 0 PDS suture. All trocar sites were closed at the skin level using 4-0 Monocryl followed by Dermabond. Overall, the patient tolerated the procedure well and was taken to the Recovery Room
postoperatively in stable condition.
I was the attending physician and performed the procedure with assistance from the BAG CHECKER above as well as Dr. Brito who was instrumental in providing tension, countertraction and helping provide better exposure in this challenging case. I was
present for all portions of the case, excluding skin closure.
Tayo Horne MD
[2023-12-19] MEDS: MIRALAX 17 GRAMS PO (08:39)
[2023-12-19] MEDS: PROTONIX 40 MG PO (08:41)
[2023-12-19] MEDS: NORVASC 10 MG PO (08:41)
[2023-12-19] MEDS: MYRBETRIQ EXTENDED RELEASE 50 MG PO (08:41)
[2023-12-19] MEDS: ZESTRIL 20 MG PO (08:42)
[2023-12-19] MEDS: ZESTRIL 10 MG PO (08:43)
[2023-12-19 08:47] LABS: ALT (SGPT) 55 U/L (0-50); AST (SGOT) 59 U/L (17-59); Albumin 4.7 g/dl (3.5-5.0); Alkaline Phosphatase 87 U/L (38-126); Blood Urea Nitrogen 24 mg/dl (9-20); Calcium 9.8 mg/dl (8.4-10.2); Carbon Dioxide 22 mmol/L (22-30); Chloride 90 mmol/L (98-107); Estimated Creatinine Clearance 86 ml/min; Glucose 187 mg/dl (70-99); Magnesium 1.8 mg/dl (1.6-2.3); Potassium 3.8 mmol/L (3.5-5.1); Sodium 136 mmol/L (135-145); Total Bilirubin 1.9 mg/dl (0.2-1.3); Total Protein 7.2 g/dl (6.3-8.2); eGFR > 60.00
[2023-12-19 09:23] LABS: Glycohemoglobin (HgbA1c) 5.4 % (4.0-5.6)
[2023-12-19] MEDS: NSS IV (09:32)
--- NOTE | 2023-12-19 10:55 | W.PN.CARDCBS ---
Today's Communication / Plan
-
Stable cardiology status
Sign off
Impression / Plan
-
PCP: Dr. Behzad Donovan
Manager Engagement: Dr. Parikh
Impression:
Presented with RUQ pain
Acute cholecystitis/status post cholecystectomy 12/18/2023
CAD
s/p prox LAD stent 12/2010
s/p CABG x2 with IVRK to LAD and SVG to OM1 05/27/2011
HTN
HLD
LBBB
TENA
Frequent PVCs
Prostate cancer s/p prostatectomy 02/15/2023
h/o hematuria with Plavix
renal stones and bladder polyps with removal and cauterization 04/2011
h/o tobacco abuse, quit 1982
Lexiscan stress test 01/08/2018: Perfusion imaging reveals a small area of mildly decreased perfusion that is fixed in the inferior apical segment consistent with soft tissue attenuation. EF 45%.
Echo 12/10/2020: EF 51%, mild cLVH, mild MR, aortic sclerosis without stenosis
Plan:
Stable cardiology status status post cholecystectomy
Discussed with patient and at bedside
Will sign off, call with questions
HPI: Jarek is a 73 year old male with PMH of CAD s/p CABG x 2, hypertension, hyperlipidemia, LBBB, TENA, frequent PVCs, and prostate cancer. He presented to [facility] for evaluation of RUQ pain. He first noted the pain yesterday and had associated
belching and bloating as well as nausea. He denies any diarrhea or vomiting. In ER, he was found to have elevated WBC of 17.[address] abdomen/pelvis with findings consistent with acute cholecystitis. He was seen by surgery in the ER and plan is for
laparoscopic cholecystectomy today. Cardiology consulted for pre-op evaluation. EKG stable. He remains active, walking 30+ minutes on a daily basis and he has no exertional symptoms. He is compliant with all of his medications. No complaints
currently other than feeling 'uncomfortable' related to abdominal pain.
Progress Note - Manager Engagement
Subjective
Date of Service: December 19, 2023
No complaints
Objective
Labs:
12/19/23 04:34
12/19/23 04:34
Labs
Hgb 17.6 g/dL (13.0-18.0) 12/19/23 04:34
Hct 49.4 % (39.0-52.0) 12/19/23 04:34
Plt Count 241 10^3/uL (130-400) D 12/19/23 04:34
Sodium 136 mmol/L (135-145) 12/19/23 04:34
Potassium 3.8 mmol/L (3.5-5.1) 12/19/23 04:34
BUN 24 mg/dl (9-20) H 12/19/23 04:34
Creatinine 1.0 mg/dL (0.7-1.3) 12/19/23 04:34
Glucose 187 mg/dl (70-99) H 12/19/23 04:34
Vital Signs and I&O:
Vital Signs
Temp Pulse Resp BP Pulse Ox
98.6 F 84 19 146/84 96
12/19/23 07:31 12/19/23 08:43 12/19/23 07:31 12/19/23 08:43 12/19/23 08:45
Vital Signs
Temp Pulse Resp BP Pulse Ox
98.6 F 84 19 146/84 96
12/19/23 07:31 12/19/23 08:43 12/19/23 07:31 12/19/23 08:43 12/19/23 08:45
Intake & Output
12/17/23 12/18/23 12/19/23 12/20/23
06:59 06:59 06:59 06:59
Intake Total 1740 / 1740
Output Total 300 / 300
Balance 1440 / 1440
Physical Exam
Physical Exam
General: Well developed, well nourished in NAD.
Neck: Supple, no JVD, HJR, carotids +2 B/L, no bruits bilaterally.
Heart: Non displaced PMI, RRR, no murmurs, No S3, S4, no rubs.
Lungs: Clear to auscultation bilaterally, no wheeze, rhonchi, rubs bilaterally,
normal expiratory phase.
Extremities: No clubbing, cyanosis or edema bilaterally.
Neuro: Grossly nonfocal, awake, alert and oriented x3.
[2023-12-19 11:13] VITALS: BP 154/80
--- NOTE | 2023-12-19 12:02 | CM ---
Met with pt and his at bedside
Pt lives with his in a 2 story home; 2 steps to enter, 12 steps to 2nd fl
Retired, independent, active, driving
DME - CPAP - for
SNF - denies past hx
HH - In past - unable to recall agency
Has ride at discharge
PCP - Blanca Victoria
Pharm - [facility]
CM will follow for d/c needs
Plan - anticipate home no needs
[2023-12-19] MEDS: FLUSH (NSS) 2 FLUSH IV (14:04)
[2023-12-19] MEDS: TORADOL 15 MG IV ×2 (14:04→20:14)
[2023-12-19 15:34] VITALS: BP 130/61
--- NOTE | 2023-12-19 17:05 | W.PN.HOSP.TC ---
Today's Communication/Plan
-
Status post cholecystectomy
Diet has been advanced
Increase activity
Discharge planning tentatively on 12/19
Assessment / Plan
Assessment / Plan
Impression:
Presentation with right upper quadrant pain
Acute cholecystitis. Sepsis ruled out.
Status post laparoscopic cholecystectomy with cholangiogram 12/18/2023.
Other conditions:
CAD with prior interventions on LAD.
Status post CABG.
Essential hypertension
Dyslipidemia baseline LBBB.
Prostate carcinoma status post prostatectomy 02/16.
History of hematuria while on Plavix.
History of nephrolithiasis.
Prior history of tobacco use disorder.
Plan:
Acute cholecystitis
Sepsis ruled out
Status post successful laparoscopic cholecystectomy with intraoperative cholangiogram on 12/18.
Diet has been advanced.
Increase activity
Antibiotics as per surgery
Cardiovascular
Volume status compensated
No evidence for ischemia on EKG.
Preadmission regimen resumed with Norvasc, lisinopril
Anticipated Discharge: 24 - 48 hours
Subjective/Interval History
-
Date of Service: December 19, 2023
Objective Data
-
Labs:
Laboratory Results
12/19/23
04:34
WBC 20.9 H
Hgb 17.6
Hct 49.4
Plt Count 241 D
Sodium 136
Potassium 3.8
Chloride 90 L
Carbon Dioxide 22
BUN 24 H
Creatinine 1.0
Glucose 187 H
Calcium 9.8
Total Bilirubin 1.9 H
AST 59
ALT 55 H
Alkaline Phosphatase 87
Vital Signs:
Vital Signs
Temp Pulse Resp BP Pulse Ox
98.3 F 87 18 130/61 98
12/19/23 15:34 12/19/23 15:34 12/19/23 15:34 12/19/23 15:34 12/19/23 15:34
I&O
12/18/23 12/19/23 12/20/23
06:59 06:59 06:59
Intake Total 1740 / 1740
Output Total 300 / 300
Balance 1440 / 1440
Physical Exam
-
General: Well Developed and No Apparent Distress
HEENT: Normocephalic, Atraumatic and Moist Mucous Membranes
Respiratory: Clear to Auscultation
Cardiac: Regular Rhythm and S1/S2; Negative Murmur, Rub or Gallop
GI: Soft, Nontender, Nondistended and Normal Bowel Sounds; Negative Organomegaly
Rectal: Deferred by Provider
Musculoskeletal: No Clubbing, No Cyanosis and No Edema
Skin: Negative Rash
Neuro: Nonfocal/Grossly Intact
[2023-12-19] MEDS: LOVENOX 40 MG SC (18:24)
[2023-12-19 19:30] VITALS: BP 132/61
[2023-12-19 23:39] VITALS: BP 138/74
[2023-12-20] MEDS: ZOSYN 50 IV ×2 (03:06→10:05)
[2023-12-20] MEDS: TORADOL 15 MG IV (03:06)
[2023-12-20 03:30] VITALS: BP 158/79
[2023-12-20 05:51] VITALS: BMI 35.6
[2023-12-20 06:55] LABS: Hematocrit 41.4 % (39.0-52.0); Hemoglobin 15.1 g/dL (13.0-18.0); Mean Corp Hgb Conc. 36.5 g/dL (33.0-37.0); Mean Corpuscular Hgb 34.4 pg (27.0-31.0); Mean Corpuscular Volume 94.3 fL (80.0-94.0); Mean Platelet Volume 12.2 fL (7.4-10.4); Platelet Count 168 10^3/uL (130-400); Red Blood Cell Count 4.39 10^6/uL (4.70-6.10); Red Cell Dist. Width 11.8 % (11.5-14.5); White Blood Cell Count 15.6 10^3/uL (4.8-10.8)
[2023-12-20 07:07] LABS: ALT (SGPT) 41 U/L (0-50); AST (SGOT) 35 U/L (17-59); Albumin 3.4 g/dl (3.5-5.0); Alkaline Phosphatase 66 U/L (38-126); Blood Urea Nitrogen 32 mg/dl (9-20); Calcium 8.4 mg/dl (8.4-10.2); Carbon Dioxide 28 mmol/L (22-30); Chloride 94 mmol/L (98-107); Estimated Creatinine Clearance 79 ml/min; Glucose 118 mg/dl (70-99); Potassium 3.9 mmol/L (3.5-5.1); Sodium 134 mmol/L (135-145); Total Bilirubin 1.4 mg/dl (0.2-1.3); Total Protein 5.8 g/dl (6.3-8.2); eGFR > 60.00
[2023-12-20 07:58] VITALS: BP 150/70
[2023-12-20] MEDS: ZESTRIL 10 MG PO (08:40)
[2023-12-20] MEDS: PROTONIX 40 MG PO (08:40)
[2023-12-20] MEDS: MYRBETRIQ EXTENDED RELEASE 50 MG PO (08:40)
[2023-12-20] MEDS: NORVASC 10 MG PO (08:40)
[2023-12-20] MEDS: ZESTRIL 20 MG PO (08:40)
[2023-12-20] MEDS: MIRALAX 17 GRAMS PO (08:41)
--- NOTE | 2023-12-20 09:22 | W.PN.GS2 ---
Today's Communication / Plan
-
Dispo planning
Assessment / Plan
-
73 year old man POD 2 cholecystectomy w/ sepsis secondary to acute cholecystitis. Leukocytosis and bilirubinemia both downtrending.
-c/w IV Zosyn while admitted, transition to oral Augmentin on discharge for an additional 2d course if leaving today
-Keep SANTHOSH drain for now. drain teaching per nursing please. If the patient
-If stable for discharge per primary, okay to MA home today with short interval follow-up for SANTHOSH removal.
Time Spent
Total Time Spent with Patient (in minutes): 20
Subjective Data
-
Date of Service: December 20, 2023
Interval Events:
No acute events overnight. Slept well. Pain Controlled. Denies Nausea/Vomiting, +bowel function. Tolerating diet.
Objective Data
-
Intake and Output
12/19/23 12/20/23 12/21/23
06:59 06:59 06:59
Intake Total 1740 / 1740 1690 / 1690
Output Total 300 / 300 160 / 160
Balance 1440 / 1440 1530 / 1530
Intake:
Oral fluids 840 / 840 1440 / 1440
IV fluids (Total) 800 / 800 50 / 50
Normosol 100 / 100
IV piggybacks 100 / 100 200 / 200
Output:
Drain Output (Total) 200 / 200 160 / 160
Right Abdomen Tyler-Vanegas 200 / 200 160 / 160
Urine, Voided 100 / 100
Other:
Number of approximated MODERATE 1 3
amounts of urine
Number of approximated LARGE 1
amounts of urine
How many times incontinent 1
Vital Signs
Temp Pulse Resp BP Pulse Ox
99.0 F 86 15 150/70 95
12/20/23 07:58 12/20/23 08:40 12/20/23 07:58 12/20/23 08:40 12/20/23 07:58
Lab Results
12/20/23 04:24
12/20/23 04:24
Calcium 8.4 mg/dl (8.4-10.2) 12/20/23 04:24
Magnesium 1.8 mg/dl (1.6-2.3) 12/19/23 04:34
Total Bilirubin 1.4 mg/dl (0.2-1.3) H 12/20/23 04:24
AST 35 U/L (17-59) 12/20/23 04:24
ALT 41 U/L (0-50) 12/20/23 04:24
Alkaline Phosphatase 66 U/L (38-126) 12/20/23 04:24
Total Protein 5.8 g/dl (6.3-8.2) L 12/20/23 04:24
Albumin 3.4 g/dl (3.5-5.0) L 12/20/23 04:24
Physical Exam
-
GENERAL/NEURO: Awake, Alert, no distress
CHEST: Unlabored breathing on RA
ABDOMEN: Soft, Non-Tender, Non-Distended, incisions clean dry and intact, SANTHOSH with serous but significant drainage.
--- NOTE | 2023-12-20 10:51 | W.PN.GS2 ---
Today's Communication / Plan
-
D/c home with SANTHOSH drain, instructions to follow up OP with Gen Surg. office
Assessment / Plan
-
73 year old man POD 1 cholecystectomy w/ sepsis secondary to acute cholecystitis
##Sepsis secondary to acute cholecystitis, s/p cholecystectomy
#Cholelithiasis
- WBC and bilirubin downtrending, remains afebrile
- Transition to oral Augmentin on discharge for total 7d course
- OK to discharge home today with SANTHOSH drain. Patient will receive education on how to drain, and follow up outpatient for drain removal
Subjective Data
-
No Acute events overnight. Pain is well controlled on Toradol. He was afebrile overnight, is ambulating well and passing flatus, though he has not passed stool yet. He tolerated a low fat well without nausea, vomiting, or abdominal pain.
Objective Data
-
Intake and Output
12/19/23 12/20/23 12/21/23
06:59 06:59 06:59
Intake Total 1740 / 1740 1690 / 1690
Output Total 300 / 300 160 / 160
Balance 1440 / 1440 1530 / 1530
Intake:
Oral fluids 840 / 840 1440 / 1440
IV fluids (Total) 800 / 800 50 / 50
Normosol 100 / 100
IV piggybacks 100 / 100 200 / 200
Output:
Drain Output (Total) 200 / 200 160 / 160
Right Abdomen Tyler-Vanegas 200 / 200 160 / 160
Urine, Voided 100 / 100
Other:
Number of approximated MODERATE 1 3
amounts of urine
Number of approximated LARGE 1
amounts of urine
How many times incontinent 1
Vital Signs
Temp Pulse Resp BP Pulse Ox
99.0 F 86 15 150/70 95
12/20/23 07:58 12/20/23 08:40 12/20/23 07:58 12/20/23 08:40 12/20/23 07:58
Lab Results
12/20/23 04:24
12/20/23 04:24
Calcium 8.4 mg/dl (8.4-10.2) 12/20/23 04:24
Magnesium 1.8 mg/dl (1.6-2.3) 12/19/23 04:34
Total Bilirubin 1.4 mg/dl (0.2-1.3) H 12/20/23 04:24
AST 35 U/L (17-59) 12/20/23 04:24
ALT 41 U/L (0-50) 12/20/23 04:24
Alkaline Phosphatase 66 U/L (38-126) 12/20/23 04:24
Total Protein 5.8 g/dl (6.3-8.2) L 12/20/23 04:24
Albumin 3.4 g/dl (3.5-5.0) L 12/20/23 04:24
Physical Exam
-
Abdominal Exam: Remains distended, tympanitic in all quadrants. Non-tender to light and deep palpation, without rebound tenderness, guarding or rigidity. Laparoscopic port sites are clean and healing well, w/o drainage, erythema or induration. Wound
dressing over the drain is clean and dry. Drain output is <160cc/24hours of serosanguineous fluid.
[2023-12-20 11:45] VITALS: BP 132/69
[2023-12-20 15:15] VITALS: BP 122/68
--- NOTE | 2023-12-20 15:20 | W.DS.TRANS ---
DC Summary - Junior Systems Administrator
-
Discharge Instructions:
Discharge Diagnosis/Procedures Impression:
Presentation with right upper quadrant pain
Acute cholecystitis. Sepsis ruled out.
Status post laparoscopic cholecystectomy with
cholangiogram 12/18/2023.
Other conditions:
CAD with prior interventions on LAD.
Status post CABG.
Essential hypertension
Dyslipidemia baseline LBBB.
Prostate carcinoma status post prostatectomy
23.
History of hematuria while on Plavix.
History of nephrolithiasis.
Prior history of tobacco use disorder.
Diet As tolerated
Activity No strenuous activity
Bathing Restrictions OK to Shower
Instructions:
Stand-Alone Forms:
Changes to Home Medications: No
Discharge Medications:
DC Medications w/original date entered in [employer]
albuterol sulfate 90 mcg/actuation aerosol inhaler 1 puff inhalation R Q6HPRN PRN SOB 12/28/10
amlodipine 10 mg tablet 10 mg PO DAILY 07/29/22
aspirin 81 mg chewable tablet 81 mg PO DAILY 07/29/22
atorvastatin 40 mg tablet 40 mg PO HS 07/29/22
cetirizine 10 mg tablet 10 mg PO DAILYPRN PRN allergies 07/29/22
cholecalciferol (vitamin D3) 25 mcg (1,000 unit) chewable tablet (Vitamin D3) 25 mcg PO DAILY 07/29/22
fluticasone propionate 50 mcg/actuation nasal spray,suspension 1 spray intranasal DAILYPRN PRN allergies 07/29/22
melatonin 10 mg tablet 10 mg PO HSPRN PRN sleep 07/29/22
nitroglycerin 0.4 mg sublingual tablet (Nitrostat) 0.4 mg sublingual [id number] PRN CP 07/29/22
Lactobac no.2-Bifidobac no.1-S. thermo 112.5 billion cell capsule (Visbiome) 1 cap PO DAILY 12/18/23
benazepril 20 mg tablet 30 mg PO DAILY 12/18/23
folic acid-vit B6-vit B12 2.5 mg-25 mg-2 mg tablet (WesTab Max) 1 tab PO DAILY 12/18/23
mirabegron 50 mg tablet,extended release 24 hr (Myrbetriq) 50 mg PO DAILY 12/18/23
yofrmnzs-gnp-tkntf acid 0.4 mg-lycopene 300 mcg-lutein 250 mcg tablet (Centrum Silver) 1 tab PO DAILY 12/18/23
tadalafil 5 mg tablet 5 mg PO DAILYPRN PRN ed 12/18/23
turmeric 400 mg capsule 400 mg PO DAILY 12/18/23
acetaminophen 325 mg tablet 650 mg (2 x 325 mg) PO Q4HPRN PRN mild pain/ fever>100.5F #30 tabs 12/20/23
amoxicillin 875 mg-potassium clavulanate 125 mg tablet 1 tab PO Q12H #4 tabs 12/20/23
oxycodone 5 mg tablet 5 mg PO Q4HPRN PRN moderate pain #10 tabs 12/20/23
Home Medication Changes
Pending Results: No
--- NOTE | 2023-12-20 15:59 | CM ---
Pt for discharge today
F/u in physicians office
Discussed IMM
Has ride home with
Plan - home no needs
== END 2023-12-20 16:11 | disposition home or self-care (01) | DRG 419 ==
LOC: 2 SOUTH 13:33
PROVIDERS: Emergency Medicine; Physician Assistant Medical; Registered Nurse; ADMITTING PHYSICIAN Hospitalist; ATTENDING PHYSICIAN Internal Medicine; CONSULT PHYSICIAN Internal Medicine Cardiovascular Disease; CONSULT PHYSICIAN Surgery; EMERGENCY PHYSICIAN Student in an Organized Health Care Education/Training Program; FAMILY PHYSICIAN Family Medicine
PROC: 0FT44ZZ Resection of Gallbladder, Percutaneous Endoscopic Approach (ICD-10-PCS; 2023-12-19)
DX: K80.00 Calculus of gallbladder with acute cholecystitis without obstruction (principal); K76.0 Fatty (change of) liver, not elsewhere classified; I08.0 Rheumatic disorders of both mitral and aortic valves; E66.01 Morbid (severe) obesity due to excess calories; Z68.35 Body mass index [BMI] 35.0-35.9, adult; I10 Essential (primary) hypertension; J45.990 Exercise induced bronchospasm; Z85.46 Personal history of malignant neoplasm of prostate; E78.00 Pure hypercholesterolemia, unspecified; G47.33 Obstructive sleep apnea (adult) (pediatric); I25.10 Atherosclerotic heart disease of native coronary artery without angina pectoris; Z95.1 Presence of aortocoronary bypass graft; Z95.5 Presence of coronary angioplasty implant and graft; I44.7 Left bundle-branch block, unspecified; M19.90 Unspecified osteoarthritis, unspecified site; Z79.82 Long term (current) use of aspirin; Z79.899 Other long term (current) drug therapy; Z87.442 Personal history of urinary calculi; Z87.891 Personal history of nicotine dependence; Z90.79 Acquired absence of other genital organ(s); Z87.19 Personal history of other diseases of the digestive system
CPT/HCPCS: 88304; 74177; 74300; 76000; 80053; 83036; 83690; 83735; 85025; 85027; 93005; 96365; 96375; 99285; A4300; C1776; Q9967

== ENCOUNTER 2024-01-01 22:48 | Inpatient (IN) | payer MEDICARE, BC, SELFPAY ==
[2024-01-01 17:31] VITALS: BP 175/85
[2024-01-01 17:59] LABS: % Basophils 0.5 % (0-2); % Eosinophils 0.5 % (0-6); % Immature Granulocytes 0.7 % (0-0.5); % Monocytes 5.3 % (1.7-9.3); Absolute Basophils 0.1 10^3/uL (0-0.2); Absolute Eosinophils 0.1 10^3/uL (0-0.7); Absolute Immature Granulocytes 0.1 10^3/uL (0-0.05); Absolute Lymphocytes 1.5 10^3/uL (1.2-3.4); Absolute Neutrophils 16.2 10^3/uL (1.4-6.5); Hematocrit 33.6 % (39.0-52.0); Hemoglobin 11.9 g/dL (13.0-18.0); Mean Corp Hgb Conc. 35.4 g/dL (33.0-37.0); Mean Corpuscular Hgb 32.9 pg (27.0-31.0); Mean Corpuscular Volume 92.8 fL (80.0-94.0); Nucleated Red Blood Cells % 0 % (-); Platelet Count 342 10^3/uL (130-400); Red Blood Cell Count 3.62 10^6/uL (4.70-6.10); Red Cell Dist. Width 11.9 % (11.5-14.5)
[2024-01-01 18:09] LABS: APTT 27.8 Sec (23.4-35.0)
[2024-01-01 18:13] LABS: ALT (SGPT) 37 U/L (0-50); AST (SGOT) 29 U/L (17-59); Albumin 4.2 g/dl (3.5-5.0); Alkaline Phosphatase 78 U/L (38-126); Blood Urea Nitrogen 35 mg/dl (9-20); Calcium 9.7 mg/dl (8.4-10.2); Carbon Dioxide 27 mmol/L (22-30); Chloride 100 mmol/L (98-107); Glucose 122 mg/dl (70-99); Potassium 4.6 mmol/L (3.5-5.1); Sodium 139 mmol/L (135-145); Total Bilirubin 0.3 mg/dl (0.2-1.3); Total Protein 6.5 g/dl (6.3-8.2); eGFR > 60.00
--- NOTE | 2024-01-01 21:08 | ED.GENMED ---
History of Present Illness
General
Chief Complaint: Abnormal Lab Value
Time Seen by Provider: 01/01/24 21:08
History of Present Illness
History of Present Illness:
HPI: Patient status post lap stuart 2 weeks ago. He has been having dark tarry stool more recently. He had his SANTHOSH drain removed today. He was sent here because outpatient hemoglobin dropped from 15 down to 11.7. No significant pain. He takes
baby aspirin daily.
EXAM:
GENERAL: Well appearing in no distress
HEENT: Moist oral mucosa
CARDIOVASCULAR: No murmurs, normal heart rate, regular rhythm, No chest wall tenderness
PULMONARY: No respiratory distress, breath sounds are clear and equal
ABDOMEN: Soft with no peritoneal signs, no tenderness
NEUROLOGIC: Excellent strength all extremities, no coordination deficits
PSYCHIATRIC: Appropriate mental status, normal insight and judgement
EXTREMITIES: Nontender, no edema, moves all extremities equally
SKIN: No rash, no lesions
TIME OF INITIAL ENCOUNTER: 9 PM
NUMBER AND COMPLEXITY OF PROBLEMS ADDRESSED AT THE ENCOUNTER
� Chronic conditions affecting care: Asthma, TENA, CAD with stent to LAD, high blood pressure,
� Acute Exacerbation and/or Progression of Chronic Illness: This is an acute problem
� Differential Diagnosis includes: Upper GI bleed, anemia, gastritis, aspirin induced bleeding
AMOUNT AND/OR COMPLEXITY OF DATA TO BE REVIEWED AND ANALYZED
� I performed an independent evaluation of and my interpretation is:
EKG:
CT:
X-rays:
Laboratory Studies: White count is 19, hemoglobin 11.9, BUN 35, normal renal function
Other:
� Review of other/old records: I reviewed records, leukocytosis has been ongoing since the past 2-week
� Clinical information was obtained by an independent historian: I spoke to the at bedside. I also reviewed the: Note sent by Dr. Horne.
� Prescriptions/Medications Considered but not given:
� Further testing considered but not performed:
RISK OF COMPLICATIONS AND/OR MORBIDITY OR MORTALITY OF PATIENT MANAGEMENT
� Social determinants of health affecting care:
� Discussion with other providers: I discussed case with Dr. Avery who recommends Protonix drip in addition to the IV Protonix that was given. Dr. Andujar for admission.
� Escalation of care including admission/observation vs risk of discharge considered: The patient does report some fatigue over the last couple of weeks. He does report some fatigue and hemoglobin has dropped. He has briskly
heme positive black stool but is hemodynamically stable. Protonix has been started and likely EGD tomorrow.
Past History
Past History
ED Past Medical History: CAD, HTN, Other (Kidney stones, arthritis, seasonal allergies ), Other (Fatty liver ) and Other (Morbid obesity )
ED Past Surgical History: Other (Perirectal abscess drainage, kidney stone removal. )
Social History
Tobacco: Non-smoker
Personal:
Living: with family
Employment: Employed
Phy Exam
Physical Exam
Physical Exam:
See HPI
Course
Orders/Labs/Results
Orders:
Orders
01/01/24 17:47
Type+Screen Urgent
Complete Blood Count/With Diff Urgent
Comprehensive Metabolic Panel Urgent
PT/INR [Prothrombin Time] Urgent
PTT Urgent
01/01/24 21:17
0.9% Sodium Chloride 1000 ml [Nss] 1,000 ml IV BOLUS
Pantoprazole [Protonix IV] 80 mg IV NOW STA
Abnormal Lab Results
01/01/24
17:47
WBC 19.0 H 10^3/uL
(4.8-10.8)
RBC 3.62 L 10^6/uL
(4.70-6.10)
Hgb 11.9 L g/dL
(13.0-18.0)
Hct 33.6 L %
(39.0-52.0)
MCH 32.9 H pg
(27.0-31.0)
MPV 11.0 H fL
(7.4-10.4)
Abs Immat Gran (auto) 0.1 H 10^3/uL
(0-0.05)
Absolute Neuts (auto) 16.2 H 10^3/uL
(1.4-6.5)
Absolute Monos (auto) 1.0 H 10^3/uL
(0.1-0.6)
Immature Gran % 0.7 H %
(0-0.5)
Neutrophils % 85.0 H %
(42.2-75.2)
Lymphocytes % 8.0 L %
(20.5-51.1)
BUN 35 H mg/dl
(9-20)
Glucose 122 H mg/dl
(70-99)
01/01/24 17:47
01/01/24 17:47
Vital Signs
Initial and Last Documented VS:
Initial Vital Signs
Temp Pulse Resp BP Pulse Ox
98.5 F 89 16 175/85 98
01/01/24 17:31 01/01/24 17:31 01/01/24 17:31 01/01/24 17:31 01/01/24 17:31
Last Documented Vital Signs
Temp Pulse Resp BP Pulse Ox
98.5 F 89 16 175/85 98
01/01/24 17:31 01/01/24 17:31 01/01/24 17:31 01/01/24 17:31 01/01/24 21:13
*Critical Care Note
Total Time (30-74mins, 75-104mins- exclusive of procedures): Not Applicable
ED Attending Note
-
Portions of this chart may have been created with voice recognition software.� Occasional wrong word or��sound alike� substitutions may have occurred due to the inherent limitations of voice recognition software.
Discharge Plan
Departure
Patient Disposition: Admit
Date of Disposition: 01/01/24
Time of Disposition: 21:28
Presentation/result/management discussed w/ accepting MD/DO: Hospitalist
Discharge Problem:
Acute upper gastrointestinal bleeding
Prescriptions:
No Action
albuterol sulfate 1 PUFF HFA aerosol inhaler
1 puff inhalation R Q6HPRN PRN (Reason: SOB)
atorvastatin 40 mg Tablet
40 mg PO HS
cetirizine 10 mg Tablet
10 mg PO DAILYPRN PRN (Reason: allergies)
amlodipine 10 mg Tablet
10 mg PO DAILY
nitroglycerin [Nitrostat] 0.4 mg Tablet, Sublingual
0.4 mg SUBLINGUAL [id number] PRN (Reason: CP)
aspirin 81 mg Tablet,Chewable
81 mg PO DAILY
fluticasone propionate 50 mcg/actuation [place],Suspension
1 spray INTRANASAL DAILYPRN PRN (Reason: allergies)
cholecalciferol (vitamin D3) [Vitamin D3] 25 mcg (1,000 unit) Tablet,Chewable
25 mcg PO DAILY
melatonin 10 mg Tablet
10 mg PO HSPRN PRN (Reason: sleep)
benazepril 20 mg Tablet
30 mg PO DAILY
WesTab Max 2.5-25-2 mg Tablet
1 tab PO DAILY
Centrum Silver 0.4 mg-300 mcg- 250 mcg Tablet
1 tab PO DAILY
Visbiome 112.5 billion cell Capsule
1 cap PO DAILY
turmeric 400 mg Capsule
400 mg PO DAILY
tadalafil 5 mg Tablet
5 mg PO DAILYPRN PRN (Reason: ed)
mirabegron [Myrbetriq] 50 mg Tablet Extended Release 24 Hr
50 mg PO DAILY
acetaminophen 325 mg Tablet
650 mg PO Q4HPRN PRN (Reason: mild pain/ fever>100.5F) Qty: 30 0RF
oxycodone 5 mg Tablet
5 mg PO Q4HPRN PRN (Reason: moderate pain) Qty: 10 0RF
amoxicillin-pot clavulanate 875-125 mg tablet
1 tab PO Q12H Qty: 4 0RF
pantoprazole [Protonix] 40 mg tablet,delayed release (DR/EC)
40 mg PO DAILY Qty: 30 0RF
Referrals:
Blanca Victoria DO [Family Provider] -
Interventions
Interventions:
*Risk Screen - Suicide Last Done: 01/01/24 17:31
*General Assessment Last Done: 01/01/24 21:13
*Neglect/Abuse Screening Last Done: 01/01/24 17:31
ED- Fall Risk Assessment Last Done: 01/01/24 21:13
*ED COVID-19 Vaccine History Last Done: 01/01/24 21:13
Discharge Date and Time
Print Language: GHANAIAN
[2024-01-01 21:12] VITALS: BP 161/75
[2024-01-01 21:13] VITALS: BMI 35.2
[2024-01-01] MEDS: NSS 1000 IV ×2 (21:27→23:53)
[2024-01-01] MEDS: PROTONIX IV 80 MG IV (21:30)
--- NOTE | 2024-01-01 21:40 | HPS.HSE ---
Addendum entered and electronically signed by Henry Andujar DO 01/01/24 23:13:
Patient seen and examined independently. Agree with findings and plan as set forth by COREY Hall.
Patient is a 73y M with PMH significant for hypertension and recent cholecystectomy who presents to ED for evaluation of black, tarry stools. Patient underwent lap asuncion on 12/19/23. He has been taking NSAIDs for post-op pain control. Patient
noted black, tarry stool a day or so after the surgery and this has continued. He reports some dyspnea with exertion / activity. He denies any lightheadedness or dizziness. Patient was seen today for post-op visit and his abdominal drain was
removed. He informed his Surgeon of his dark colored stools and was sent to the ED for further evaluation.
Ass:
Melena / GI Bleed
Acute Blood Loss Anemia
s/p Lap Asuncion 12/19/23
Benign Hypertension
ASCVD
Prostate cancer s/p Prostatectomy
OAB
Obesity due to excess calories
Plan:
Admit for further evaluation and treatment.
NPO, IVFs, IV PPI gtt.
Follow H&H for changes.
Avoid further NSAIDs, etc.
GI evaluation for additional recommendations / possible endoscopic examination.
Original Note:
Family Physician
-
Family Physician: Blanca Victoria
Chief Complaint
-
Black tarry stools x 13 days
History of Present Illness
73-year-old male status post lap asuncion on 12/19/2023 with SANTHOSH drain who was seen by Dr. Tayo Horne in the office today, where he had his SANTHOSH drain pulled. He mentioned to the physician at that time he was having black tarry stools he was placed on
Protonix had outpatient lab work on 12/28/2023 with hemoglobin coming back at 11.7 from a prior baseline of 15. He was sent to the ER today for evaluation of upper GI bleed. The patient tells me he started with black tarry stools the day after
surgery lasting currently 13 days. He was also taking Motrin 600 mg while inpatient for 2 days at least 4 times a day then after discharge he was taking Motrin 400 mg twice daily x 8 days until 12/27/2023. He reports a rumbling sensation in his
epigastric to the right side back along with belching and decreased appetite for the past 13 days. He denies fever, chills, headache, sore throat, chest pain, palpitations, shortness breath, cough, vomiting, urinary symptoms.
The patient has past medical history of cholecystitis/sepsis status post laparoscopic cholecystectomy 12/19/2023, HTN, HLD, CAD/CABG, chronic LBBB, prostate carcinoma status post prostatectomy January 2023, nephrolithiasis, hematuria on Plavix,
prior tobacco use, obesity
Medical History
Past Medical History
Past Medical History: Reports Other
Additional Past Medical History:
Coronary Artery Disease s/p CABG
Essential Hypertension
Hyperlipidemia
Exercise Induced Asthma
Prostate Cancer s/p Prostatectomy
Nephrolithiasis
Fatty Liver
Past Surgical History: Reports Other
Additional Past Surgical History:
CABG
Prostatectomy
Laser Lithotripsy and Ureteral Stent
Tonsillectomy
Vasectomy
Carpal Tunnel Release
Smoked 1/2 pack x 15 years quit in 1982
Social History
Tobacco: Former Smoker (Smoked 1/2 pack x 15 years quit in 1982)
Alcohol: Other (2 alcoholic beverage per week)
Drug: None
Personal:
Living: With Family
Employment: Retired
Family History
Family History: Not pertinent
Allergies / Home Medications
Allergies reflects when Allergies were last updated in [facility].
Home Medications with original date entered in [facility]
Allergy/Medication List:
Allergies
Allergy/AdvReac Type Severity Reaction Status Date / Time
cat dander Allergy asthma Verified 01/01/24 17:33
mold Allergy asthma Verified 01/01/24 17:33
pollen extracts Allergy asthma Verified 01/01/24 17:33
Home Medications
albuterol sulfate 90 mcg/actuation aerosol inhaler 1 puff inhalation R Q6HPRN PRN SOB 12/28/10
amlodipine 10 mg tablet 10 mg PO DAILY 07/29/22
aspirin 81 mg chewable tablet 81 mg PO DAILY 07/29/22
atorvastatin 40 mg tablet 40 mg PO HS 07/29/22
cetirizine 10 mg tablet 10 mg PO DAILYPRN PRN allergies 07/29/22
cholecalciferol (vitamin D3) 25 mcg (1,000 unit) chewable tablet (Vitamin D3) 25 mcg PO DAILY 07/29/22
fluticasone propionate 50 mcg/actuation nasal spray,suspension 1 spray intranasal DAILYPRN PRN allergies 07/29/22
nitroglycerin 0.4 mg sublingual tablet (Nitrostat) 0.4 mg sublingual [id number] PRN CP 07/29/22
Lactobac no.2-Bifidobac no.1-S. thermo 112.5 billion cell capsule (Visbiome) 1 cap PO DAILY 12/18/23
benazepril 20 mg tablet 30 mg PO DAILY 12/18/23
folic acid-vit B6-vit B12 2.5 mg-25 mg-2 mg tablet (WesTab Max) 1 tab PO DAILY 12/18/23
mirabegron 50 mg tablet,extended release 24 hr (Myrbetriq) 50 mg PO DAILY 12/18/23
xzdogqkx-hmf-bigpg acid 0.4 mg-lycopene 300 mcg-lutein 250 mcg tablet (Centrum Silver) 1 tab PO DAILY 12/18/23
tadalafil 5 mg tablet 5 mg PO DAILYPRN PRN ed 12/18/23
acetaminophen 325 mg tablet 650 mg (2 x 325 mg) PO Q4HPRN PRN mild pain/ fever>100.5F #30 tabs 12/20/23
pantoprazole 40 mg tablet,delayed release (Protonix) 40 mg PO DAILY #30 tabs 01/01/24
Review of Systems
-
History Source: Patient and Family ( at bedside)
A 12 point ROS was completed and negative except as noted: Yes
Constitutional: Denies Fever or Chills
EENT: Denies Tearing, Sore Throat or Runny Nose
Respiratory: Denies Cough or Trouble Breathing
Cardiac: Denies Chest Pain, Diaphoresis, Palpitations or Syncope
Abdomen/GI: Reports Abdominal Pain (Epigastric to right posterior back), Nausea and Black Stools (X 13 days); Denies Vomiting, Diarrhea, Constipated or Bloody Stools
: Denies Dysuria, Frequency, Flank Pain, Incontinence or Difficulty Voiding
Musculoskeletal: Reports Edema (Trace bilateral lower legs); Denies Joint Pain
Skin: Denies Itching or Rash
Neurological: Denies Dizzy, Headache or Weakness
Endocrine: Reports No Symptoms
Hematologic/Lymphatic: Reports No Symptoms
Psych: Reports Calm
Physical Exam
Vital Signs
Vital Signs
Temp Pulse Resp BP Pulse Ox
98.5 F 89 16 175/85 98
01/01/24 17:31 01/01/24 17:31 01/01/24 17:31 01/01/24 17:31 01/01/24 21:13
Physical Exam
General: Comfortable, Conversant, Pain (Epigastric) and Obese; No Fever or Chills
HEENT: NormoCephalic, Anicteric, Moist mucous membranes, PERRLA, [place] Conjunctivae and No Ptosis
Respiratory: Clear; No Wheezes, Rales or Rhonchi
Cardiac: S1/S2, Regular Rhythm and Peripheral Edema (Trace bilateral); No Murmur, Rub or Gallop
Breast: Deferred by me
GI: Soft, Non Distended, Normal Bowel Sounds, Tender (Epigastric) and No Hepatosplenomegaly; No Distended
Rectal: Deferred by Provider
Genito-urinary: Deferred by me
Musculoskeletal: No Clubbing, No Cyanosis, Edema, Left Lower Extremity (Trace) and Edema, Right Lower Extremity (Trace); No Edema, Left Upper Extremity or Edema, Right Upper Extremity
Neuro: AO x 3, No Motor Deficits, Nonfocal/grossly intact and No Sensory Deficits; No Slurred Speech, Facial Droop or Tremors
Psych: Calm
Laboratory Results
-
01/01/24 17:47
01/01/24 17:47
Laboratory Results
PT 14.0 Sec (11.4-14.6) 01/01/24 17:47
INR 1.10 01/01/24 17:47
APTT 27.8 Sec (23.4-35.0) 01/01/24 17:47
Total Bilirubin 0.3 mg/dl (0.2-1.3) 01/01/24 17:47
AST 29 U/L (17-59) 01/01/24 17:47
ALT 37 U/L (0-50) 01/01/24 17:47
Alkaline Phosphatase 78 U/L (38-126) 01/01/24 17:47
Impression/Plan
-
Impression/plan:
Admit to telemetry
#Black stool concerning for upper GI bleed
#Status post cholecystectomy on 12/19/2023
Hgb 11.9 <14.2 on 12/28/2023, 15.1 on 12/20/2023
-Patient reports dark tarry stools x 13 days, prior Motrin 400 mg twice daily x 8 days then 2 days of 600 mg 4 times daily in the hospital
-Hold baby aspirin
-Type and screen
-N.p.o. possible EGD in a.m.
-IV Protonix gtt
-IV NSS 100 cc/hr
#Cholecystitis with sepsis status post laparoscopic cholecystectomy with SANTHOSH drains 12/19/2023
-High SANTHOSH drain pulled on 12/19/[address] Tayo Johnston
WBC 19 earlier today 16.5 At 1354
#HTN
BP 175/85
-hold Amlodipine 10 mg daily, benazepril 30 mg daily
#HLD
hold Atorvastatin 40 mg at bedtime
#CAD/CABG
#Chronic LBBB
#Prostate carcinoma status post prostatectomy January 2023
#Overactive bladder
Hold -Myrbetriq 50 mg daily
Other PMH:
Nephrolithiasis
Hematuria on prior Plavix
Prior history of tobacco use-smoked for 15 years 1/2 pack quit 1982
DVT prophylaxis
SCDs
Full code
[2024-01-01 22:00] VITALS: BP 150/71
[2024-01-01] MEDS: PROTONIX 100 IV (22:25)
[2024-01-01 23:00] VITALS: BP 140/62
[2024-01-02] VITALS (15 sets, daily range): BP systolic 14–167; BP diastolic 63–75
[2024-01-02 06:38] LABS: % Basophils 0.4 % (0-2); % Eosinophils 0.3 % (0-6); % Immature Granulocytes 0.9 % (0-0.5); % Lymphocytes 6.4 % (20.5-51.1); % Monocytes 4.5 % (1.7-9.3); % Neutrophils 87.5 % (42.2-75.2); Absolute Basophils 0.1 10^3/uL (0-0.2); Absolute Eosinophils 0.1 10^3/uL (0-0.7); Absolute Immature Granulocytes 0.1 10^3/uL (0-0.05); Absolute Monocytes 0.7 10^3/uL (0.1-0.6); Absolute Neutrophils 13.9 10^3/uL (1.4-6.5); Hematocrit 26.8 % (39.0-52.0); Hemoglobin 9.7 g/dL (13.0-18.0); Mean Corp Hgb Conc. 36.2 g/dL (33.0-37.0); Mean Corpuscular Hgb 34.4 pg (27.0-31.0); Mean Platelet Volume 11.3 fL (7.4-10.4); Nucleated Red Blood Cells % 0 % (-); Platelet Count 247 10^3/uL (130-400); Red Blood Cell Count 2.82 10^6/uL (4.70-6.10); Red Cell Dist. Width 12.1 % (11.5-14.5); White Blood Cell Count 15.9 10^3/uL (4.8-10.8)
[2024-01-02 06:57] LABS: ALT (SGPT) 31 U/L (0-50); AST (SGOT) 24 U/L (17-59); Albumin 3.4 g/dl (3.5-5.0); Alkaline Phosphatase 68 U/L (38-126); Blood Urea Nitrogen 35 mg/dl (9-20); Calcium 8.8 mg/dl (8.4-10.2); Carbon Dioxide 24 mmol/L (22-30); Chloride 104 mmol/L (98-107); Estimated Creatinine Clearance 95 ml/min; Glucose 143 mg/dl (70-99); Potassium 4.4 mmol/L (3.5-5.1); Sodium 138 mmol/L (135-145); Total Bilirubin 0.4 mg/dl (0.2-1.3); Total Protein 5.6 g/dl (6.3-8.2); eGFR > 60.00
--- NOTE | 2024-01-02 08:04 | CON.GI ---
Addendum entered and electronically signed by Samuel Avery MD 01/02/24 13:52:
We discussed the risk, benefits, and alternatives to upper endoscopy. The risks include bleeding, infection, perforation, missed lesion, and cardiopulmonary complications from anesthesia. The importance of bringing an escort and remaining NPO
after midnight was discussed.
Addendum entered and electronically signed by Samuel Avery MD 01/02/24 13:41:
I saw and examined the patient.
The COLLEGE COACH or PA's note was reviewed and I agree with the note.
Comment: 73-year-old male past medical history as below presenting with melena, bloating, nausea, twinge feeling in abdomen, shortness of breath, fatigue after having recent cholecystectomy December 18. He was taking NSAIDs and aspirin. Plan for
upper endoscopy. Risk, alternatives, benefits reviewed with patient he was agreeable. Of note, patient follows with Dr. Philip thorpe.
Continue PPI and monitor hemoglobin.
Original Note:
Consultation
-
Date/Time Consultation Requested: 01/01/242220
Date/Time Consultation Performed: 01/02/24 0345
Requesting Provider: COREY Hall
Performing Provider: Dr. Avery/COREY Marte
Reason for Consultation: GIB/melena
Medical History
Chief Complaint / HPI
Chief Complaint: melena
History of Present Illness:
73-year-old man with past medical history of CAD with CABG (2 vessels in 2011), prostate cancer with robotic prostatectomy 01/2023/XRT, hypertension, hyperlipidemia, exercise-induced asthma, obstructive sleep apnea, fatty liver, kidney stones, colon
polyps with recent laparoscopic cholecystectomy with cholangiogram on 12/19/2023.The patient was discharged on 12/20/2023. He states that on 12/22/23 He noticed that his stools became black. He started having black tarry stools approximately 3 times
a day. He was taking aspirin 81 mg daily. He was also taking Motrin 200 mg tablets 2-4 times daily. He did not know that this could be signs of GI bleeding. He started noticing increased fatigue and eventually some dyspnea on exertion. He went
for his postop visit yesterday with Dr. Horne and had his SANTHOSH drain removed. At that time he did tell Dr. Johnston that he was having black tarry stools. He was sent for lab work and sent to the ER for further evaluation. This is where his
hemoglobin was found to be 11.7 down from his discharge hemoglobin of 15.1. This is now 9.7 this morning. I spoke to the RN he has had 2 episodes of melena overnight. When he does get up to ambulate he does become somewhat tachycardic. He has
received 1.9 L IV fluid and is on a Protonix drip. Patient denies any prior history of upper GI complaints. Prior to his cholecystectomy he was having some bloating and belching. This does continue. He quit smoking in 1982. He has 3 hard ciders
a week. He is eating less than what he was prior. He does have night sweats at night. He denies any fevers, chills, nausea, vomiting, hematochezia, dysphagia or odynophagia. WBC 15.9, hemoglobin 9.7, hematocrit 26.8, platelets 247, PT 14.0, INR
1.10, sodium 138, potassium 4.4, chloride 104, CO2 24, BUN 35, creatinine 0.9, glucose 143, total bilirubin 0.4, AST 24, ALT 31, alk phos 68. Stool tested for occult blood positive by ER.
Past Medical History
Past Medical History: Asthma, CAD (Status post CABG), Cancer (Prostate cancer status post robotic prostatectomy/XRT), HTN, Hypercholesterolemia and Other (Obstructive sleep apnea, fatty liver, kidney stones, colon polyps)
Past Surgical History: Cardiac (CABG), Cholecystectomy, Orthopedic (Carpal tunnel release), Tonsilectomy and Urological (Lithotripsy, ureteral stent, prostatectomy, vasectomy)
Social History
Tobacco: Former Smoker (Quit 1982)
Alcohol: Occasional (Drinks 3 hard ciders weekly)
Drug: None
Personal:
Living: With Family
Employment: Retired
Family History
Family History: Other (Paternal grandfather had one third of his stomach removed, unknown reason, mother had 'something wrong with her intestine'. Otherwise no known family history of gastrointestinal bleed is here IV day)
Allergies / Home Medications
Allergy/AdvReac Type Severity Reaction Status Date / Time
cat dander Allergy asthma Verified 01/01/24 17:33
mold Allergy asthma Verified 01/01/24 17:33
pollen extracts Allergy asthma Verified 01/01/24 17:33
�Medication �Instructions �Recorded
albuterol sulfate 90 mcg/actuation 1 puff inhalation R Q6HPRN PRN SOB 12/28/10
aerosol inhaler
amlodipine 10 mg tablet 10 mg PO DAILY 07/29/22
aspirin 81 mg chewable tablet 81 mg PO DAILY 07/29/22
atorvastatin 40 mg tablet 40 mg PO HS 07/29/22
cetirizine 10 mg tablet 10 mg PO DAILYPRN PRN allergies 07/29/22
cholecalciferol (vitamin D3) 25 25 mcg PO DAILY 07/29/22
mcg (1,000 unit) chewable tablet
(Vitamin D3)
fluticasone propionate 50 1 spray intranasal DAILYPRN PRN 07/29/22
mcg/actuation nasal allergies
spray,suspension
nitroglycerin 0.4 mg sublingual 0.4 mg sublingual [id number] PRN CP 07/29/22
tablet (Nitrostat)
Lactobac no.2-Bifidobac no.1-S. 1 cap PO DAILY 12/18/23
thermo 112.5 billion cell capsule
(Visbiome)
benazepril 20 mg tablet 30 mg PO DAILY 12/18/23
folic acid-vit B6-vit B12 2.5 1 tab PO DAILY 12/18/23
mg-25 mg-2 mg tablet (WesTab Max)
mirabegron 50 mg tablet,extended 50 mg PO DAILY 12/18/23
release 24 hr (Myrbetriq)
hidxrwks-lll-pcwda acid 0.4 1 tab PO DAILY 12/18/23
mg-lycopene 300 mcg-lutein 250 mcg
tablet (Centrum Silver)
tadalafil 5 mg tablet 5 mg PO DAILYPRN PRN ed 12/18/23
acetaminophen 325 mg tablet 650 mg (2 x 325 mg) PO Q4HPRN PRN 12/20/23
mild pain/ fever>100.5F #30 tabs
pantoprazole 40 mg tablet,delayed 40 mg PO DAILY #30 tabs 01/01/24
release (Protonix)
Review of Systems
-
All other systems: A 12 pt ROS was Negative except as stated above in HPI
Vital Signs
Temp Pulse Resp BP Pulse Ox
98.1 F 90 16 165/73 97
01/02/24 07:12 01/02/24 07:12 01/02/24 07:12 01/02/24 07:12 01/02/24 07:12
Physical Exam
Exam
General: No Apparent Distress
HEENT: Anicteric
Respiratory: Clear
Cardiac: Regular Rhythm
GI: Soft, Non Tender, Non Distended, Normal Bowel Sounds and Other (Healed lap incisions)
Musculoskeletal: Edema (Trace bilateral pedal edema)
Skin: Warm and Dry
Neuro: AO x 3
Psych: Calm
Results
WBC 15.9 10^3/uL (4.8-10.8) H 01/02/24 06:07
Hgb 9.7 g/dL (13.0-18.0) L 01/02/24 06:07
Hct 26.8 % (39.0-52.0) L 01/02/24 06:07
MCV 95.0 fL (80.0-94.0) H 01/02/24 06:07
Plt Count 247 10^3/uL (130-400) D 01/02/24 06:07
Absolute Neuts (auto) 13.9 10^3/uL (1.4-6.5) H 01/02/24 06:07
PT 14.0 Sec (11.4-14.6) 01/01/24 17:47
INR 1.10 01/01/24 17:47
APTT 27.8 Sec (23.4-35.0) 01/01/24 17:47
Sodium 138 mmol/L (135-145) 01/02/24 06:07
Potassium 4.4 mmol/L (3.5-5.1) 01/02/24 06:07
Chloride 104 mmol/L (98-107) 01/02/24 06:07
Carbon Dioxide 24 mmol/L (22-30) 01/02/24 06:07
BUN 35 mg/dl (9-20) H 01/02/24 06:07
Creatinine 0.9 mg/dL (0.7-1.3) 01/02/24 06:07
Calcium 8.8 mg/dl (8.4-10.2) 01/02/24 06:07
Total Bilirubin 0.4 mg/dl (0.2-1.3) 01/02/24 06:07
AST 24 U/L (17-59) 01/02/24 06:07
ALT 31 U/L (0-50) 01/02/24 06:07
Alkaline Phosphatase 68 U/L (38-126) 01/02/24 06:07
Diagnostic Image Results:
No imaging this admission
Prior GI Procedures:
EGD: Never
Colonoscopy: 10/18/22 Dr. Palacios: - Two 4 mm polyps in the transverse colon and in the
ascending colon, removed with a cold snare. Resected
and retrieved.
- One diminutive polyp at the hepatic flexure, removed
with a jumbo cold forceps. Resected and retrieved. Repeat 3 yrs.
Colonoscopy 04/17/2019 Dr. Palacios: Four 4 to 5 mm polyps in the sigmoid colon, in the
transverse colon and at the hepatic flexure, removed
with a cold snare. Resected and retrieved.
- Two diminutive polyps in the descending colon and at
the splenic flexure, removed with a jumbo cold forceps.
Resected and retrieved.
- Multiple diminutive polyps in the rectum, removed with
a jumbo cold forceps. Resected and retrieved.
Colonoscopy 08/11/2015: - One 2 mm polyp in the cecum. Resected and retrieved.
- One 5 mm polyp in the transverse colon. Resected and
retrieved.
- One 3 mm polyp in the sigmoid colon. Resected and
retrieved.
- Internal hemorrhoids.
Colonoscopy 01/30/2012 Dr. Palacios: One 7 mm polyp at the hepatic flexure. Resected and
retrieved.
- Four 3 mm polyps in the sigmoid colon, in the
descending colon and in the cecum. Resected and
retrieved.
- Internal hemorrhoids.
- One hemostatic clip was successfully placed.
Assessment / Plan
-
73-year-old man with past medical history of CAD with CABG (2 vessels in 2011), prostate cancer with robotic prostatectomy 01/2023/XRT, hypertension, hyperlipidemia, exercise-induced asthma, obstructive sleep apnea, fatty liver, kidney stones, colon
polyps with recent laparoscopic cholecystectomy with cholangiogram on 12/19/2023 who presents to the emergency room after being seen by surgeon for postop visit. Having melena since 12/22/2023. Found to have a hemoglobin of 11.7 down from his
discharge hemoglobin of 15.1. This is now 9.7 this morning. He was taking aspirin 81 mg daily. He was also taking Motrin 200 mg tablets 2-4 times daily. No prior history of upper GI complaints before. Never had an EGD. Does not take PPI.
Paternal grandfather has a history of having one third of his stomach removed. Unknown reason behind this. Currently still having melena 2 times since arrival. Patient is n.p.o. Consented for blood if needed. Agreeable for EGD.
Impression:
Melena
Blood loss anemia, ongoing since 12/22/2023
Plan:
-N.p.o.
-Continue Protonix drip
-EGD today
-Monitor CBC
-Transfuse if hemoglobin less than 7
-Further recommendations to be forthcoming after EGD today
-
-
Thank you for consultation and allowing me to participate in the patient's care. Please call the lactation nurse GI physician during the after hours with any questions or concerns.
[2024-01-02] MEDS: PROTONIX 100 IV ×2 (08:29→18:23)
[2024-01-02] MEDS: TIGAN 200 MG IM (08:33)
[2024-01-02] MEDS: NSS 1000 IV ×2 (08:38→18:23)
--- NOTE | 2024-01-02 09:07 | W.PN.HOSP.TC ---
Today's Communication/Plan
-
N.p.o. for
Serial hemoglobin
IV PPI.
EGD
Hold antihypertensives
Assessment / Plan
Assessment / Plan
Impression:
Presentation with melena.
Acute gastrointestinal hemorrhage
Acute anemia secondary to blood loss.
Leukocytosis likely stress-induced
Conditions prior to admission:
Recent hospitalization with acute cholecystitis status post laparoscopic cholecystectomy with intraoperative cholangiogram December 17.
Coronary artery disease with prior intervention in left anterior
descending.
History of coronary artery bypass graft.
Essential hypertension.
Dyslipidemia.
Left bundle branch block, chronic.
Prostate carcinoma status post prostatectomy January 2023.
History of nephrolithiasis.
History of hematuria while on Plavix.
Prior history of tobacco use disorder.
Plan:
Gastrointestinal hemorrhage with acute blood loss anemia.
Suspect upper GI source: PUD/DU/gastritis. Elevated BUN.
Patient reports daily NSAIDs Motrin administration for pain control with recent cholecystectomy. Also on aspirin.
Hemodynamically stable.
Hemoglobin drifted down from 14.2 on 12/27-9.7.
NPO.
IV PPI drip.
GI consultation with plan for urgent EGD.
Hold aspirin.
Avoid NSAIDs
Serial hemoglobin
Transfuse if hemoglobin trending below 7
Type and cross with consent signed.
Essential hypertension
Hold amlodipine, benazepril acutely.
Full code
DVT prophylaxis mechanical
Anticipated Discharge: 24 - 48 hours
Subjective/Interval History
-
Date of Service: January 02, 2024
Objective Data
-
Labs:
Laboratory Results
01/02/24
06:07
WBC 15.9 H
Hgb 9.7 L
Hct 26.8 L
Plt Count 247 D
Sodium 138
Potassium 4.4
Chloride 104
Carbon Dioxide 24
BUN 35 H
Creatinine 0.9
Glucose 143 H
Calcium 8.8
Total Bilirubin 0.4
AST 24
ALT 31
Alkaline Phosphatase 68
Vital Signs:
Vital Signs
Temp Pulse Resp BP Pulse Ox
98.1 F 88 19 161/73 97
01/02/24 07:12 01/02/24 08:35 01/02/24 08:35 01/02/24 08:35 01/02/24 07:12
Physical Exam
-
General: Well Developed and No Apparent Distress
HEENT: Normocephalic, Atraumatic and Moist Mucous Membranes
Respiratory: Clear to Auscultation
Cardiac: Regular Rhythm and S1/S2; Negative Murmur, Rub or Gallop
GI: Soft, Nontender, Nondistended and Normal Bowel Sounds; Negative Organomegaly
Rectal: Deferred by Provider
Musculoskeletal: No Clubbing, No Cyanosis and No Edema
Skin: Negative Rash
Neuro: Nonfocal/Grossly Intact
--- NOTE | 2024-01-02 13:10 | PTCARENOTE ---
1217: Patient arrived to 2S post EGD. Full head to toe assessment completed. Lap sites on abdomen d/t recent lap stuart clean dry and intact closed with glue open to air. 4X4 with small amount of drainage from recent SANTHOSH removal intact. IVF running
per order. Patient on RA with SpO2 greater than 92%. Call staples within reach and bed in lowest position. Patients at bedside.
[2024-01-02 16:26] LABS: Hemoglobin 8.5 g/dL (13.0-18.0)
[2024-01-03] VITALS (8 sets, daily range): BP systolic 137–168; BP diastolic 61–86; BMI 34.5
[2024-01-03] MEDS: NSS 1000 IV (03:40)
[2024-01-03] MEDS: PROTONIX 100 IV ×2 (05:30→14:09)
[2024-01-03 08:08] LABS: % Basophils 0.6 % (0-2); % Eosinophils 0.7 % (0-6); % Immature Granulocytes 0.7 % (0-0.5); % Lymphocytes 10.3 % (20.5-51.1); % Monocytes 5.8 % (1.7-9.3); % Neutrophils 81.9 % (42.2-75.2); Absolute Basophils 0.1 10^3/uL (0-0.2); Absolute Eosinophils 0.1 10^3/uL (0-0.7); Absolute Immature Granulocytes 0.1 10^3/uL (0-0.05); Absolute Lymphocytes 1.1 10^3/uL (1.2-3.4); Absolute Monocytes 0.6 10^3/uL (0.1-0.6); Absolute Neutrophils 8.5 10^3/uL (1.4-6.5); Hematocrit 23.7 % (39.0-52.0); Hemoglobin 8.3 g/dL (13.0-18.0); Mean Corpuscular Hgb 33.1 pg (27.0-31.0); Mean Corpuscular Volume 94.4 fL (80.0-94.0); Mean Platelet Volume 11.3 fL (7.4-10.4); Nucleated Red Blood Cells % 0 % (-); Platelet Count 217 10^3/uL (130-400); Red Blood Cell Count 2.51 10^6/uL (4.70-6.10); Red Cell Dist. Width 12.6 % (11.5-14.5); White Blood Cell Count 10.3 10^3/uL (4.8-10.8)
--- NOTE | 2024-01-03 08:18 | W.PN.GI.CBS2 ---
Today's Communication / Plan
-
monitor hb/bowel movements
Assessment / Plan
-
73-year-old man with past medical history of CAD with CABG (2 vessels in 2011), prostate cancer with robotic prostatectomy 01/2023/XRT, hypertension, hyperlipidemia, exercise-induced asthma, obstructive sleep apnea, fatty liver, kidney stones, colon
polyps with recent laparoscopic cholecystectomy with cholangiogram on 12/19/2023 who presents to the emergency room after being seen by surgeon for postop visit. Having melena since 12/22/2023.
Found on EGD 01/01 to have a bleeding periampullary diverticulum (likely bleeding 2/2 NSAIDs).
Melena yesterday, none overnight.
Hb did drop stable this am has not needed blood transfusions.
Recommendations:
-clear liquid diet
-protonix 40 iv bid
-Monitor CBC/bowel movements
-If ongoing bleeding needs IR intervention
-avoid nsaids
Subjective
Subjective
Date of Service: January 03, 2024
6 bm yesterday none overnight
feels better today
Objective
Data Reviewed
Laboratory Data:
Laboratory Results
01/03/24 05:53
Laboratory Results
PT 14.0 Sec (11.4-14.6) 01/01/24 17:47
INR 1.10 01/01/24 17:47
APTT 27.8 Sec (23.4-35.0) 01/01/24 17:47
Total Bilirubin 0.4 mg/dl (0.2-1.3) 01/02/24 06:07
AST 24 U/L (17-59) 01/02/24 06:07
ALT 31 U/L (0-50) 01/02/24 06:07
Alkaline Phosphatase 68 U/L (38-126) 01/02/24 06:07
Vital Signs and I&O:
Vital Signs
Temp Pulse Resp BP Pulse Ox
98.5 F 90 19 160/69 98
01/03/24 07:41 01/03/24 07:41 01/03/24 07:41 01/03/24 07:41 01/03/24 07:41
I&O
01/02/24 01/03/24 01/04/24
06:59 06:59 06:59
Intake Total 3460 / 3460
Balance 3460 / 3460
Physical Exam
Physical Exam
HEENT: Anicteric
Cardiology: Normal Sinus Rhythm
Pulmonary: Clear
GI: Non Distended and Non Tender
[2024-01-03 09:23] LABS: ALT (SGPT) 29 U/L (0-50); AST (SGOT) 25 U/L (17-59); Albumin 3.3 g/dl (3.5-5.0); Alkaline Phosphatase 63 U/L (38-126); Blood Urea Nitrogen 19 mg/dl (9-20); Calcium 8.5 mg/dl (8.4-10.2); Carbon Dioxide 27 mmol/L (22-30); Chloride 103 mmol/L (98-107); Estimated Creatinine Clearance 94 ml/min; Glucose 120 mg/dl (70-99); Potassium 4.4 mmol/L (3.5-5.1); Sodium 138 mmol/L (135-145); Total Bilirubin 0.4 mg/dl (0.2-1.3); Total Protein 5.3 g/dl (6.3-8.2); eGFR > 60.00
--- NOTE | 2024-01-03 10:25 | CM ---
Reviewed the chart notes and spoke with the patient and his spouse at the bedside. The patient was recently hospitalized (12/17-12/19) for sepsis and acute cholecystitis. Patient resides with his spouse in a two story home with two steps to enter.
The patient reports no DME or SNF, but has had VN. Patient could not recall the name of the agency. The patient confirmed [facility] continues to be available to patient/family and is monitoring
medical plan for needs at discharge.
Plan: Discharge to home when medically stable. No anticipated needs identified at this time.
[2024-01-03 16:51] LABS: Hemoglobin 7.1 g/dL (13.0-18.0); Mean Corp Hgb Conc. 35.5 g/dL (33.0-37.0); Mean Corpuscular Hgb 33.3 pg (27.0-31.0); Mean Corpuscular Volume 93.9 fL (80.0-94.0); Platelet Count 220 10^3/uL (130-400); Red Blood Cell Count 2.13 10^6/uL (4.70-6.10); Red Cell Dist. Width 12.4 % (11.5-14.5); White Blood Cell Count 12.3 10^3/uL (4.8-10.8)
--- NOTE | 2024-01-03 17:04 | W.PN.HOSP.TC ---
Today's Communication/Plan
-
Clear liquid diet
PPI twice daily.
Resume blood pressure medication
Transfuse to keep hemoglobin above 8
Assessment / Plan
Assessment / Plan
Impression:
Presentation with melena.
Acute gastrointestinal hemorrhage
Acute anemia secondary to blood loss.
Leukocytosis likely stress-induced
Conditions prior to admission:
Recent hospitalization with acute cholecystitis status post laparoscopic cholecystectomy with intraoperative cholangiogram December 17.
Coronary artery disease with prior intervention in left anterior
descending.
History of coronary artery bypass graft.
Essential hypertension.
Dyslipidemia.
Left bundle branch block, chronic.
Prostate carcinoma status post prostatectomy January 2023.
History of nephrolithiasis.
History of hematuria while on Plavix.
Prior history of tobacco use disorder.
Plan:
Gastrointestinal hemorrhage with acute blood loss anemia.
EGD 01/01 to have a bleeding periampullary diverticulum (likely bleeding 2/2 NSAIDs).
Patient reports daily NSAIDs Motrin administration for pain control with recent cholecystectomy. Also on aspirin.
Hemodynamically stable.
Hemoglobin drifted down from 14.2 on 12/27-9.7-7.1
While hemoglobin equalizing at 7.1, remains hemodynamically stable with no occasional brown stool.
Transfuse to keep hemoglobin above 8.
Advance to clear liquid diet
Change PPI drip to Protonix twice daily
Essential hypertension
Resume blood pressure medications
Full code
DVT prophylaxis mechanical
Anticipated Discharge: 24 - 48 hours
Subjective/Interval History
-
Date of Service: January 03, 2024
Objective Data
-
Labs:
Laboratory Results
01/03/24 01/03/24
05:53 16:35
WBC 10.3 12.3 H
Hgb 8.3 L 7.1 L
Hct 23.7 L 20.0 L*
Plt Count 217 220
Sodium 138
Potassium 4.4
Chloride 103
Carbon Dioxide 27
BUN 19
Creatinine 0.9
Glucose 120 H
Calcium 8.5
Total Bilirubin 0.4
AST 25
ALT 29
Alkaline Phosphatase 63
Vital Signs:
Vital Signs
Temp Pulse Resp BP Pulse Ox
98.2 F 86 20 154/67 98
01/03/24 15:41 01/03/24 15:41 01/03/24 15:41 01/03/24 15:41 01/03/24 15:41
I&O
01/02/24 01/03/24 01/04/24
06:59 06:59 06:59
Intake Total 3460 / 3460
Balance 3460 / 3460
Physical Exam
-
General: Well Developed and No Apparent Distress
HEENT: Normocephalic, Atraumatic and Moist Mucous Membranes
Respiratory: Clear to Auscultation
Cardiac: Regular Rhythm and S1/S2; Negative Murmur, Rub or Gallop
GI: Soft, Nontender, Nondistended and Normal Bowel Sounds; Negative Organomegaly
Rectal: Deferred by Provider
Musculoskeletal: No Clubbing, No Cyanosis and No Edema
Skin: Negative Rash
Neuro: Nonfocal/Grossly Intact
[2024-01-03] MEDS: NORVASC 10 MG PO (17:41)
[2024-01-03] MEDS: NSS (PRESERVATIVE FREE) 10 ML IV (21:59)
[2024-01-03] MEDS: LIPITOR 40 MG PO (21:59)
[2024-01-03] MEDS: PROTONIX IV 40 MG IV (22:00)
[2024-01-04 03:26] VITALS: BP 152/79
[2024-01-04 05:14] VITALS: BMI 34.3
[2024-01-04 06:04] LABS: % Basophils 0.3 % (0-2); % Eosinophils 0.2 % (0-6); % Immature Granulocytes 0.9 % (0-0.5); % Lymphocytes 10.2 % (20.5-51.1); % Monocytes 6.7 % (1.7-9.3); % Neutrophils 81.7 % (42.2-75.2); Absolute Immature Granulocytes 0.1 10^3/uL (0-0.05); Absolute Lymphocytes 1.3 10^3/uL (1.2-3.4); Absolute Monocytes 0.8 10^3/uL (0.1-0.6); Absolute Neutrophils 10.1 10^3/uL (1.4-6.5); Hematocrit 22.3 % (39.0-52.0); Hemoglobin 7.7 g/dL (13.0-18.0); Mean Corp Hgb Conc. 34.5 g/dL (33.0-37.0); Mean Corpuscular Hgb 31.8 pg (27.0-31.0); Mean Corpuscular Volume 92.1 fL (80.0-94.0); Mean Platelet Volume 11.4 fL (7.4-10.4); Nucleated Red Blood Cells % 0 % (-); Platelet Count 240 10^3/uL (130-400); Red Blood Cell Count 2.42 10^6/uL (4.70-6.10); Red Cell Dist. Width 14.5 % (11.5-14.5); White Blood Cell Count 12.4 10^3/uL (4.8-10.8)
[2024-01-04 06:31] LABS: ALT (SGPT) 24 U/L (0-50); AST (SGOT) 21 U/L (17-59); Albumin 3.2 g/dl (3.5-5.0); Alkaline Phosphatase 58 U/L (38-126); Blood Urea Nitrogen 27 mg/dl (9-20); Calcium 8.7 mg/dl (8.4-10.2); Carbon Dioxide 24 mmol/L (22-30); Chloride 103 mmol/L (98-107); Estimated Creatinine Clearance 94 ml/min; Glucose 145 mg/dl (70-99); Potassium 3.8 mmol/L (3.5-5.1); Sodium 136 mmol/L (135-145); Total Bilirubin 0.7 mg/dl (0.2-1.3); Total Protein 5.2 g/dl (6.3-8.2); eGFR > 60.00
[2024-01-04 07:55] VITALS: BP 172/82
[2024-01-04] MEDS: NORVASC 10 MG PO (09:26)
[2024-01-04] MEDS: ZESTRIL 30 MG PO (09:26)
[2024-01-04] MEDS: NSS (PRESERVATIVE FREE) 10 ML IV ×2 (09:28→21:19)
[2024-01-04] MEDS: PROTONIX IV 40 MG IV ×2 (09:28→21:19)
[2024-01-04 11:11] VITALS: BP 141/59
--- NOTE | 2024-01-04 11:48 | CM ---
Reviewed the chart notes. CM continues to be available to patient/family and is monitoring medical plan for needs at discharge.
Plan: Discharge to when medically stable. No needs anticipated.
[2024-01-04 12:23] VITALS: BMI 34.3
--- NOTE | 2024-01-04 12:34 | W.PN.GI.CBS2 ---
Addendum entered and electronically signed by Samuel Avery MD 01/04/24 16:16:
I saw and examined the patient.
The [employer] MAKING MACHINE OPERATOR or PA's note was reviewed and I agree with the note.
Comment: 73-year-old male past history as below with recent cholecystectomy found to have bleeding periampullary diverticulum likely due to NSAIDs. Still with several dark stools overnight with slight hemoglobin drop requiring transfusion.
However, bleeding seems to overall have decreased in terms of his stools. We will continue to monitor if he has ongoing bleeding tomorrow, we will need to discuss with interventional radiology versus advanced endoscopy treatments for possible
periampullary diverticular bleed in terms of interventional options. If bleeding stops, we will be able to discharge him. I discussed with the hospitalist. I will make him n.p.o. after midnight in case any procedure needs to be done tomorrow.
Original Note:
Today's Communication / Plan
-
-ok for full liquid diet trial
-protonix 40 iv bid
-Monitor CBC dur for repeat in AM /bowel movements
-If ongoing bleeding needs IR intervention
-avoid nsaids
family updated
Assessment / Plan
-
73-year-old man with past medical history of CAD with CABG (2 vessels in 2011), prostate cancer with robotic prostatectomy 01/2023/XRT, hypertension, hyperlipidemia, exercise-induced asthma, obstructive sleep apnea, fatty liver, kidney stones, colon
polyps with recent laparoscopic cholecystectomy with cholangiogram on 12/19/2023 who presents to the emergency room after being seen by surgeon for postop visit. Having melena since 12/22/2023.
Found on EGD 01/01 to have a bleeding periampullary diverticulum (likely bleeding 2/2 NSAIDs).
still with several stools overnight-- he states much less volume and feeling better
Hb did drop with 1 units transfused last night hbg 7.1 then 7.7 post transfusion
Recommendations:
-ok for full liquid diet trial
-protonix 40 iv bid
-Monitor CBC dur for repeat in AM /bowel movements
-If ongoing bleeding needs IR intervention
-avoid nsaids
Subjective
Subjective
Date of Service: January 04, 2024
pt feeling better, several stools over last 24 hours with last at 9am -- pt feels like much less volume and ? some brown in stools, on clear diet asking for advance, denies dizziness or lightheaded
Objective
Data Reviewed
Laboratory Data:
Laboratory Results
01/04/24 05:16
01/04/24 05:16
Laboratory Results
PT 14.0 Sec (11.4-14.6) 01/01/24 17:47
INR 1.10 01/01/24 17:47
APTT 27.8 Sec (23.4-35.0) 01/01/24 17:47
Total Bilirubin 0.7 mg/dl (0.2-1.3) 01/04/24 05:16
AST 21 U/L (17-59) 01/04/24 05:16
ALT 24 U/L (0-50) 01/04/24 05:16
Alkaline Phosphatase 58 U/L (38-126) 01/04/24 05:16
Vital Signs and I&O:
Vital Signs
Temp Pulse Resp BP Pulse Ox
98.6 F 88 20 141/59 97
01/04/24 11:11 01/04/24 11:39 01/04/24 11:39 01/04/24 11:11 01/04/24 11:39
I&O
01/03/24 01/04/24 01/05/24
06:59 06:59 06:59
Intake Total 3460 / 3460 2990 / 2990
Balance 3460 / 3460 2990 / 2990
Physical Exam
Physical Exam
HEENT: Anicteric and Moist mucous membranes
Cardiology: Normal Sinus Rhythm
Pulmonary: Clear
GI: Soft, Non Distended and Non Tender
Extremities: No Edema
Neuro: Non Focal
[2024-01-04 15:28] VITALS: BP 129/61
--- NOTE | 2024-01-04 17:04 | W.PN.HOSP.TC ---
Today's Communication/Plan
-
Hemoglobin remains at 7's with transfusion over the last 24 hours.
Occasional dark stools.
Hemodynamically stable and not tachycardic.
Unclear if ongoing slow blood loss.
Discussed with gastroenterology
Monitor closely.
With reasonable concern for ongoing slow blood loss we will keep n.p.o. postmidnight for repeat endoscopy
Assessment / Plan
Assessment / Plan
Impression:
Presentation with melena.
Acute gastrointestinal hemorrhage
Acute anemia secondary to blood loss.
Leukocytosis likely stress-induced
Conditions prior to admission:
Recent hospitalization with acute cholecystitis status post laparoscopic cholecystectomy with intraoperative cholangiogram December 17.
Coronary artery disease with prior intervention in left anterior
descending.
History of coronary artery bypass graft.
Essential hypertension.
Dyslipidemia.
Left bundle branch block, chronic.
Prostate carcinoma status post prostatectomy January 2023.
History of nephrolithiasis.
History of hematuria while on Plavix.
Prior history of tobacco use disorder.
Plan:
Gastrointestinal hemorrhage with acute blood loss anemia.
EGD 01/01 to have a bleeding periampullary diverticulum (likely bleeding 2/2 NSAIDs).
Patient reports daily NSAIDs Motrin administration for pain control with recent cholecystectomy. Also on aspirin.
Hemodynamically stable.
Hemoglobin drifted down from 14.2 on 12/27-9.7-7.1-7.7
While hemoglobin equalizing at 7.1, remains hemodynamically stable with no occasional brown stool.
Transfuse to keep hemoglobin above 8.
Advance to clear liquid diet
Change PPI drip to Protonix twice daily
Essential hypertension
Resume blood pressure medications
Full code
DVT prophylaxis mechanical
Anticipated Discharge: 24 - 48 hours
Subjective/Interval History
-
Date of Service: January 04, 2024
Objective Data
-
Labs:
Laboratory Results
01/04/24
05:16
WBC 12.4 H
Hgb 7.7 L
Hct 22.3 L
Plt Count 240
Sodium 136
Potassium 3.8
Chloride 103
Carbon Dioxide 24
BUN 27 H
Creatinine 0.9
Glucose 145 H
Calcium 8.7
Total Bilirubin 0.7
AST 21
ALT 24
Alkaline Phosphatase 58
Vital Signs:
Vital Signs
Temp Pulse Resp BP Pulse Ox
98.3 F 87 20 129/61 99
01/04/24 15:28 01/04/24 15:28 01/04/24 15:28 01/04/24 15:28 01/04/24 15:28
I&O
01/03/24 01/04/24 01/05/24
06:59 06:59 06:59
Intake Total 3460 / 3460 2990 / 2990
Balance 3460 / 3460 2990 / 2990
Physical Exam
-
General: Well Developed and No Apparent Distress
HEENT: Normocephalic, Atraumatic and Moist Mucous Membranes
Respiratory: Clear to Auscultation
Cardiac: Regular Rhythm and S1/S2; Negative Murmur, Rub or Gallop
GI: Soft, Nontender, Nondistended and Normal Bowel Sounds; Negative Organomegaly
Rectal: Deferred by Provider
Musculoskeletal: No Clubbing, No Cyanosis and No Edema
Skin: Negative Rash
Neuro: Nonfocal/Grossly Intact
[2024-01-04 19:14] VITALS: BP 134/60
[2024-01-04] MEDS: LIPITOR 40 MG PO (21:19)
[2024-01-04] MEDS: FLUSH (NSS) 2 FLUSH IV (21:23)
[2024-01-04 23:06] VITALS: BP 129/64
[2024-01-05] VITALS (14 sets, daily range): BP systolic 11–159; BP diastolic 55–80; BMI 34.1
[2024-01-05 06:23] LABS: % Basophils 0.5 % (0-2); % Eosinophils 1.1 % (0-6); % Immature Granulocytes 0.8 % (0-0.5); % Lymphocytes 13.1 % (20.5-51.1); % Monocytes 6.6 % (1.7-9.3); % Neutrophils 77.9 % (42.2-75.2); Absolute Basophils 0.1 10^3/uL (0-0.2); Absolute Eosinophils 0.1 10^3/uL (0-0.7); Absolute Immature Granulocytes 0.1 10^3/uL (0-0.05); Absolute Lymphocytes 1.2 10^3/uL (1.2-3.4); Absolute Monocytes 0.6 10^3/uL (0.1-0.6); Absolute Neutrophils 7.3 10^3/uL (1.4-6.5); Hematocrit 20.1 % (39.0-52.0); Hemoglobin 7.1 g/dL (13.0-18.0); Mean Corp Hgb Conc. 35.3 g/dL (33.0-37.0); Mean Corpuscular Hgb 32.9 pg (27.0-31.0); Mean Corpuscular Volume 93.1 fL (80.0-94.0); Mean Platelet Volume 11.2 fL (7.4-10.4); Nucleated Red Blood Cells % 0.2 % (-); Platelet Count 220 10^3/uL (130-400); Red Blood Cell Count 2.16 10^6/uL (4.70-6.10); Red Cell Dist. Width 15.4 % (11.5-14.5); White Blood Cell Count 9.3 10^3/uL (4.8-10.8)
[2024-01-05 06:35] LABS: ALT (SGPT) 23 U/L (0-50); AST (SGOT) 21 U/L (17-59); Albumin 3.3 g/dl (3.5-5.0); Alkaline Phosphatase 61 U/L (38-126); Blood Urea Nitrogen 17 mg/dl (9-20); Calcium 8.8 mg/dl (8.4-10.2); Carbon Dioxide 24 mmol/L (22-30); Chloride 101 mmol/L (98-107); Estimated Creatinine Clearance 106 ml/min; Glucose 112 mg/dl (70-99); Potassium 3.7 mmol/L (3.5-5.1); Sodium 137 mmol/L (135-145); Total Bilirubin 0.6 mg/dl (0.2-1.3); Total Protein 5.3 g/dl (6.3-8.2); eGFR > 60.00
[2024-01-05] MEDS: NSS (PRESERVATIVE FREE) 10 ML IV ×2 (09:08→21:40)
[2024-01-05] MEDS: NORVASC 10 MG PO (09:08)
[2024-01-05] MEDS: PROTONIX IV 40 MG IV ×2 (09:08→21:40)
[2024-01-05] MEDS: ZESTRIL 30 MG PO (09:08)
[2024-01-05 11:51] LABS: Hemoglobin 6.5 g/dL (13.0-18.0)
--- NOTE | 2024-01-05 14:04 | PTCARENOTE ---
Pt's blood transfusion begun. Pt and Pt's instructed on plan of care along with possible signs and symptoms of transfusion reaction to report to nursing staff. Pt and Pt's verbalized understanding of instructions. VSS, pt is afebrile.
Call staples is within reach.
--- NOTE | 2024-01-05 14:08 | CM ---
Addendum entered by Sommer Pa RN 01/05/24 15:36:
IMM signed.
Original Note:
Reviewed the chart notes and spoke with the patient and his spouse at the bedside. Patient receiving UPRBC at this time. Patient anticipates going to have a repeat endoscopy today. CM continues to be available to patient/family and is monitoring
medical plan for needs at discharge.
Plan: Discharge to home when medically stable.
--- NOTE | 2024-01-05 14:40 | W.PN.HOSP.TC ---
Today's Communication/Plan
-
Transfuse additional unit of packed red blood cells with follow-up hemoglobin
Pending repeat upper endoscopy
Continue PPI
Hold antihypertensives
Assessment / Plan
Assessment / Plan
Impression:
Presentation with melena.
Acute gastrointestinal hemorrhage
Acute anemia secondary to blood loss.
Leukocytosis likely stress-induced
Conditions prior to admission:
Recent hospitalization with acute cholecystitis status post laparoscopic cholecystectomy with intraoperative cholangiogram December 17.
Coronary artery disease with prior intervention in left anterior
descending.
History of coronary artery bypass graft.
Essential hypertension.
Dyslipidemia.
Left bundle branch block, chronic.
Prostate carcinoma status post prostatectomy January 2023.
History of nephrolithiasis.
History of hematuria while on Plavix.
Prior history of tobacco use disorder.
Plan:
Gastrointestinal hemorrhage with acute blood loss anemia.
EGD 01/01 to have a bleeding periampullary diverticulum (likely bleeding 2/2 NSAIDs).
Patient reports daily NSAIDs Motrin administration for pain control with recent cholecystectomy. Also on aspirin.
Remains hemodynamically stable although with occasional black stools and hemoglobin drifting down to 6.5 today
Discussed with GI including advanced endoscopy service.
Plan is to transfuse additional unit of packed red blood cells to keep hemoglobin between 7 and 8
Repeat upper endoscopy today
Essential hypertension
Given drifting hemoglobin, will hold antihypertensives.
Full code
DVT prophylaxis mechanical
Anticipated Discharge: > 48 hours
Subjective/Interval History
-
Date of Service: January 05, 2024
Objective Data
-
Labs:
Laboratory Results
01/05/24 01/05/24 01/05/24
05:00 11:15 14:39
WBC 9.3
Hgb 7.1 L 6.5 L* Pending
Hct 20.1 L*
Plt Count 220
Sodium 137
Potassium 3.7
Chloride 101
Carbon Dioxide 24
BUN 17
Creatinine 0.8
Glucose 112 H
Calcium 8.8
Total Bilirubin 0.6
AST 21
ALT 23
Alkaline Phosphatase 61
Vital Signs:
Vital Signs
Temp Pulse Resp BP Pulse Ox
97.7 F 83 18 131/60 98
01/05/24 13:40 01/05/24 13:40 01/05/24 13:40 01/05/24 13:40 01/05/24 13:40
I&O
01/04/24 01/05/24 01/06/24
06:59 06:59 06:59
Intake Total 2990 / 2990 1320 / 1320
Balance 2990 / 2990 1320 / 1320
Physical Exam
-
General: Well Developed and No Apparent Distress
HEENT: Normocephalic, Atraumatic and Moist Mucous Membranes
Respiratory: Clear to Auscultation
Cardiac: Regular Rhythm and S1/S2; Negative Murmur, Rub or Gallop
GI: Soft, Nontender, Nondistended and Normal Bowel Sounds; Negative Organomegaly
Rectal: Deferred by Provider
Musculoskeletal: No Clubbing, No Cyanosis and No Edema
Skin: Negative Rash
Neuro: Nonfocal/Grossly Intact
--- NOTE | 2024-01-05 17:15 | PTCARENOTE ---
Pt received from the PACU post ERCP AAOX3, HR Reg. Pt is Sinus Jair, hr 50's, with a BBC on [employer]. VSS, Pt is afebrile. Pt denies pain or discomfort at this time. Pt denies nausea. Pt and Pt's updated on the plan of care. Both pt and
verbalized understanding of instructions.
[2024-01-05 20:48] LABS: Hemoglobin 8.6 g/dL (13.0-18.0)
[2024-01-05] MEDS: LIPITOR 40 MG PO (21:40)
[2024-01-06 03:50] VITALS: BP 130/63
[2024-01-06 05:37] LABS: % Basophils 0.5 % (0-2); % Eosinophils 0.9 % (0-6); % Immature Granulocytes 0.5 % (0-0.5); % Lymphocytes 10.3 % (20.5-51.1); % Neutrophils 80.8 % (42.2-75.2); Absolute Eosinophils 0.1 10^3/uL (0-0.7); Absolute Lymphocytes 0.8 10^3/uL (1.2-3.4); Absolute Monocytes 0.5 10^3/uL (0.1-0.6); Absolute Neutrophils 6.2 10^3/uL (1.4-6.5); Hemoglobin 8.3 g/dL (13.0-18.0); Mean Corp Hgb Conc. 34.6 g/dL (33.0-37.0); Mean Corpuscular Hgb 32.2 pg (27.0-31.0); Nucleated Red Blood Cells % 0 % (-); Platelet Count 189 10^3/uL (130-400); Red Blood Cell Count 2.58 10^6/uL (4.70-6.10); White Blood Cell Count 7.7 10^3/uL (4.8-10.8)
[2024-01-06 05:59] LABS: Blood Urea Nitrogen 12 mg/dl (9-20); Carbon Dioxide 27 mmol/L (22-30); Chloride 99 mmol/L (98-107); Estimated Creatinine Clearance 94 ml/min; Glucose 108 mg/dl (70-99); Potassium 3.8 mmol/L (3.5-5.1); Sodium 139 mmol/L (135-145); eGFR > 60.00
[2024-01-06 06:00] VITALS: BMI 33.7
[2024-01-06 07:30] VITALS: BP 139/68
[2024-01-06] MEDS: NSS (PRESERVATIVE FREE) 10 ML IV ×2 (08:07→21:19)
[2024-01-06] MEDS: PROTONIX IV 40 MG IV ×2 (08:07→21:19)
--- NOTE | 2024-01-06 09:09 | W.PN.HOSP.TC ---
Today's Communication/Plan
-
Possible discharge tomorrow if hemoglobin stable
Assessment / Plan
Assessment / Plan
Impression:
Presentation with melena.
Acute gastrointestinal hemorrhage
Acute anemia secondary to blood loss.
Leukocytosis likely stress-induced
Conditions prior to admission:
Recent hospitalization with acute cholecystitis status post laparoscopic cholecystectomy with intraoperative cholangiogram December 17.
Coronary artery disease with prior intervention in left anterior
descending.
History of coronary artery bypass graft.
Essential hypertension.
Dyslipidemia.
Left bundle branch block, chronic.
Prostate carcinoma status post prostatectomy January 2023.
History of nephrolithiasis.
History of hematuria while on Plavix.
Prior history of tobacco use disorder.
Plan:
Gastrointestinal hemorrhage with acute blood loss anemia.
EGD 01/01 to have a bleeding periampullary diverticulum (likely bleeding 2/2 NSAIDs).
Patient reports daily NSAIDs Motrin administration for pain control with recent cholecystectomy. Also on aspirin.
Remains hemodynamically stable although with occasional black stools and hemoglobin drifting down to 6.5 today
EGD 01/04 shows nonbleeding duodenal diverticulum
Hemoglobin stable at 8.3 today, was 8.6, was 6.5
Trend hemoglobin
Essential hypertension
Given anemia, will hold antihypertensives.
DVT prophylaxis�SCDs secondary to GI bleed
Full code
Total time spent to see the patient on the floor, examine the patient, review data and lab results, discuss treatment plan with patient, nursing staff around 38 minutes.
Physical Exam
General: Obese, no acute distress
HEENT: Normocephalic, Atraumatic, EOMI, MMM
Respiratory: Clear to Auscultation bilaterally
Cardiac: Normal S1/S2, Regular Rate and Rhythm
GI: Soft, Nontender, Nondistended, Normal Bowel Sounds
Extremities: No Clubbing, Cyanosis, or Edema
Neuro: Nonfocal/Grossly Intact
Psych: Calm, Cooperative
Derm: No Visible lesions
Anticipated Discharge: Within 24 hours
Subjective/Interval History
-
Date of Service: January 06, 2024
Bloody stools resolved. He had a bowel movement today, that was brown and green. No nausea, no vomiting.
Objective Data
-
Labs:
Laboratory Results
01/06/24
05:24
WBC 7.7
Hgb 8.3 L
Hct 24.0 L
Plt Count 189
Sodium 139
Potassium 3.8
Chloride 99
Carbon Dioxide 27
BUN 12
Creatinine 0.9
Glucose 108 H
Calcium 9.0
Vital Signs:
Vital Signs
Temp Pulse Resp BP Pulse Ox
98.3 F 85 18 139/68 99
01/06/24 07:30 01/06/24 07:30 01/06/24 07:30 01/06/24 07:30 01/06/24 07:30
I&O
01/05/24 01/06/24 01/07/24
06:59 06:59 06:59
Intake Total 1320 / 1320 960 / 960
Balance 1320 / 1320 960 / 960
[2024-01-06 11:10] VITALS: BP 141/72
--- NOTE | 2024-01-06 11:13 | W.PN.GI.CBS2 ---
Today's Communication / Plan
-
Advance diet, GI s/o
Assessment / Plan
-
73-year-old man with past medical history of CAD with CABG (2 vessels in 2011), prostate cancer with robotic prostatectomy 01/2023/XRT, hypertension, hyperlipidemia, exercise-induced asthma, obstructive sleep apnea, fatty liver, kidney stones, colon
polyps with recent laparoscopic cholecystectomy with cholangiogram on 12/19/2023 who presents to the emergency room after being seen by surgeon for postop visit. Having melena since 12/22/2023.
Repeat EGD was performed yesterday for drop in Hgb. EGD yesterday showed no blood in the stomach or in the duodenum, periampullary diverticula was examined closely and there was no active bleeding or clot or evidence of blood seen. Essentially
negative study. He received 1 units of PRBC yesterday. Hgb remains stable. Had ZenoLink this morning. He is not having upper GI bleed at this time. Advance diet. Continue to monitor Hgb, call us back if active GI bleeding is suspected. Will
sign off.
Total Time Spent with Patient (in minutes): 35
Subjective
Subjective
Date of Service: January 06, 2024
Had [employer] BM this AM. Hungry.
Objective
Data Reviewed
Laboratory Data:
Laboratory Results
01/06/24 05:24
01/06/24 05:24
Laboratory Results
PT 14.0 Sec (11.4-14.6) 01/01/24 17:47
INR 1.10 01/01/24 17:47
APTT 27.8 Sec (23.4-35.0) 01/01/24 17:47
Total Bilirubin 0.6 mg/dl (0.2-1.3) 01/05/24 05:00
AST 21 U/L (17-59) 01/05/24 05:00
ALT 23 U/L (0-50) 01/05/24 05:00
Alkaline Phosphatase 61 U/L (38-126) 01/05/24 05:00
Vital Signs and I&O:
Vital Signs
Temp Pulse Resp BP Pulse Ox
98.3 F 85 18 139/68 99
01/06/24 07:30 01/06/24 07:30 01/06/24 07:30 01/06/24 07:30 01/06/24 08:00
I&O
01/05/24 01/06/24 01/07/24
06:59 06:59 06:59
Intake Total 1320 / 1320 960 / 960
Balance 1320 / 1320 960 / 960
[2024-01-06] MEDS: LASIX 40 MG IV ×2 (11:22→16:54)
[2024-01-06 15:30] VITALS: BP 131/58
[2024-01-06 19:13] VITALS: BP 148/67
[2024-01-06] MEDS: LIPITOR 40 MG PO (21:26)
[2024-01-06 23:45] VITALS: BP 140/64
[2024-01-07 03:54] VITALS: BP 149/75
[2024-01-07 06:00] VITALS: BMI 33.3
[2024-01-07 07:25] VITALS: BP 155/69
[2024-01-07] MEDS: NSS (PRESERVATIVE FREE) 10 ML IV (08:20)
[2024-01-07] MEDS: LASIX 40 MG IV (08:21)
[2024-01-07] MEDS: PROTONIX IV 40 MG IV (08:21)
--- NOTE | 2024-01-07 08:39 | W.PN.HOSP.TC ---
Today's Communication/Plan
-
Discharge today
Assessment / Plan
Assessment / Plan
Impression:
Presentation with melena.
Acute gastrointestinal hemorrhage
Acute anemia secondary to blood loss.
Leukocytosis likely stress-induced
Conditions prior to admission:
Recent hospitalization with acute cholecystitis status post laparoscopic cholecystectomy with intraoperative cholangiogram December 17.
Coronary artery disease with prior intervention in left anterior
descending.
History of coronary artery bypass graft.
Essential hypertension.
Dyslipidemia.
Left bundle branch block, chronic.
Prostate carcinoma status post prostatectomy January 2023.
History of nephrolithiasis.
History of hematuria while on Plavix.
Prior history of tobacco use disorder.
Plan:
Gastrointestinal hemorrhage with acute blood loss anemia.
EGD 01/01 to have a bleeding periampullary diverticulum (likely bleeding 2/2 NSAIDs).
Patient reports daily NSAIDs Motrin administration for pain control with recent cholecystectomy. Also on aspirin.
Remains hemodynamically stable although with occasional black stools and hemoglobin drifting down to 6.5 today
EGD 01/04 shows nonbleeding duodenal diverticulum
Hemoglobin stable at 8.9 today, was 8.3, was 8.6, was 6.5
Medically stable and cleared by GI for discharge today
Strict avoidance of NSAIDs, continue Protonix 40 mg twice a day for 8 weeks, then daily
Follow-up with PCP in 1 week, GI in the office in 3-4 weeks
Essential hypertension
Blood pressure trending up�resume amlodipine and losartan.
DVT prophylaxis�SCDs secondary to GI bleed
Full code
Physical Exam
General: Obese, no acute distress
HEENT: Normocephalic, Atraumatic, EOMI, MMM
Respiratory: Clear to Auscultation bilaterally
Cardiac: Normal S1/S2, Regular Rate and Rhythm
GI: Soft, Nontender, Nondistended, Normal Bowel Sounds
Extremities: No Clubbing, Cyanosis
Mild lower extremity edema
Neuro: Nonfocal/Grossly Intact
Psych: Calm, Cooperative
Derm: No Visible lesions
Anticipated Discharge: Today
Subjective/Interval History
-
Date of Service: January 07, 2024
Patient had 2 bowel movements, no blood. No abdominal pain. No nausea, no vomiting. No chest pain, no shortness of breath. No fever. Patient feels well, is eager for discharge.
Objective Data
-
Labs:
Laboratory Results
01/07/24
07:05
WBC Pending
Hgb Pending
Hct Pending
Plt Count Pending
Vital Signs:
Vital Signs
Temp Pulse Resp BP Pulse Ox
98.4 F 83 18 155/69 99
01/07/24 07:25 01/07/24 07:25 01/07/24 07:25 01/07/24 08:21 01/07/24 07:25
I&O
01/06/24 01/07/24 01/08/24
06:59 06:59 06:59
Intake Total 960 / 960 1979
Balance 960 / 960 1979
[2024-01-07 08:41] LABS: Hematocrit 25.4 % (39.0-52.0); Hemoglobin 8.9 g/dL (13.0-18.0); Mean Corpuscular Hgb 33.6 pg (27.0-31.0); Mean Corpuscular Volume 95.8 fL (80.0-94.0); Mean Platelet Volume 11.7 fL (7.4-10.4); Platelet Count 206 10^3/uL (130-400); Red Blood Cell Count 2.65 10^6/uL (4.70-6.10); Red Cell Dist. Width 16.5 % (11.5-14.5); White Blood Cell Count 7.4 10^3/uL (4.8-10.8)
[2024-01-07 11:16] VITALS: BP 130/64
[2024-01-07] MEDS: ZESTRIL 30 MG PO (11:16)
[2024-01-07] MEDS: NORVASC 10 MG PO (11:17)
--- NOTE | 2024-01-07 11:21 | W.DCSUMMARY ---
Discharge Summary
Discharge Data
Date of Admission: 01/01/24
Date of Discharge: 01/07/24
-
Pending Results: No
Hospital Course
Discharge diagnosis:
Gastrointestinal bleed from bleeding periampullary diverticulum
Melena
Acute blood loss anemia
Stress-induced leukocytosis
Recent cholecystectomy 12/18/2023
Coronary artery disease
History of coronary artery bypass graft
Essential hypertension
Dyslipidemia
Left bundle branch block, chronic
Prostate carcinoma status post prostatectomy January 2023
Consults: GI
01/02/2024 EGD - bleeding periampullary diverticulum (likely bleeding 2/2 NSAIDs)
01/05/2024 EGD -nonbleeding duodenal diverticulum
Hospital course:
73-year-old male with a past medical history of prostate cancer, hypertension, hyperlipidemia, CAD, and recent cholecystectomy on 12/18/2023 presented with melena, and was found to have gastrointestinal bleed from a bleeding periampullary
diverticulum. Patient had a recent cholecystectomy on 12/18/2023, and reports taking NSAIDs for pain control postoperatively.
Patient was seen in conjunction with GI. He was treated with Protonix 40 mg IV twice daily. He underwent EGD on 01/02/2024 showing a bleeding periampullary diverticulum, likely secondary to NSAID use. Patient has been counseled to permanently
avoid all NSAID use. He reports understanding.
Patient had acute blood loss anemia from his GI bleed. His hemoglobin was 11.7 upon admission, and dropped as low as 6.5. He was transfused 2 units of packed red blood cells. His hemoglobin improved to 8.6, and remained stable at 8.9 on the day
of discharge.
Repeat EGD on 01/05/2024 shows a nonbleeding duodenal diverticulum. Patient's melena resolved. He is medically stable and cleared by GI for discharge. GI recommends pantoprazole 40 mg twice a day for 8 weeks, then daily. He needs to follow-up
with his primary care doctor 1 week, and GI in the office.
Disposition: Home self-care
Discharge planning: Required 41-minute
Discharge Plan
-
Patient Disposition: Home (Routine Discharge)
Discharge Diagnosis/Procedures: Acute blood loss anemia, gastrointestinal bleed, recent cholecystectomy
Condition: Fair
Diet: Low Fat and Low Cholesterol
Activity: As tolerated
Driving Restrictions: As prior to admission
Activity Restrictions/Additional Instructions:
You need to take pantoprazole 40 mg twice a day for 8 weeks, then daily.
Please avoid all [id number] NSAID medications such as ibuprofen, naproxen, Aleve, Motrin, Advil.
These medications can make you have gastrointestinal bleeding.
Follow-up with your primary care doctor in 1 week, and GI in the office in 3-4 weeks.
Referrals:
Blanca Victoria DO [Family Provider] - in one week
Samuel Avery MD [Active] - in three to four weeks
Prescriptions:
Continued
albuterol sulfate 1 PUFF HFA aerosol inhaler
1 puff inhalation R Q6HPRN PRN (Reason: SOB)
atorvastatin 40 mg Tablet
40 mg PO HS
cetirizine 10 mg Tablet
10 mg PO DAILYPRN PRN (Reason: allergies)
amlodipine 10 mg Tablet
10 mg PO DAILY
nitroglycerin [Nitrostat] 0.4 mg Tablet, Sublingual
0.4 mg SUBLINGUAL [id number] PRN (Reason: CP)
aspirin 81 mg Tablet,Chewable
81 mg PO DAILY
fluticasone propionate 50 mcg/actuation [place],Suspension
1 spray INTRANASAL DAILYPRN PRN (Reason: allergies)
cholecalciferol (vitamin D3) [Vitamin D3] 25 mcg (1,000 unit) Tablet,Chewable
25 mcg PO DAILY
benazepril 20 mg Tablet
30 mg PO DAILY
WesTab Max 2.5-25-2 mg Tablet
1 tab PO DAILY
Centrum Silver 0.4 mg-300 mcg- 250 mcg Tablet
1 tab PO DAILY
Visbiome 112.5 billion cell Capsule
1 cap PO DAILY
tadalafil 5 mg Tablet
5 mg PO DAILYPRN PRN (Reason: ed)
mirabegron [Myrbetriq] 50 mg Tablet Extended Release 24 Hr
50 mg PO DAILY
acetaminophen 325 mg Tablet
650 mg PO Q4HPRN PRN (Reason: mild pain/ fever>100.5F) Qty: 30 0RF
Changed
pantoprazole [Protonix] 40 mg tablet,delayed release (DR/EC)
40 mg PO BID Qty: 60 0RF
Discharge Orders:
Discharge Patient (As Directed); Ordered 01/07/24
Ordered By: Devon Bowles
Discharge Date and Time
Discharge Date/Time: 01/07/24 12:16
Print Language: FRISIAN
[2024-01-07] MEDS: FLUAD (65 yr+) 2024-2025 FORMULA 0.5 ML IM (11:50)
== END 2024-01-07 12:16 | disposition home or self-care (01) | DRG 378 ==
LOC: 2 SOUTH 22:48
PROVIDERS: Clinical Nurse Specialist Family Health; Internal Medicine; Internal Medicine Gastroenterology; Student in an Organized Health Care Education/Training Program; ADMITTING PHYSICIAN Hospitalist; ATTENDING PHYSICIAN Family Medicine; CONSULT PHYSICIAN Internal Medicine Gastroenterology; EMERGENCY PHYSICIAN Emergency Medicine; FAMILY PHYSICIAN Family Medicine
PROC: 0DJ08ZZ Inspection of Upper Intestinal Tract, Via Natural or Artificial Opening Endoscopic (ICD-10-PCS; 2024-01-02)
PROC: 30233N1 Transfusion of Nonautologous Red Blood Cells into Peripheral Vein, Percutaneous Approach (ICD-10-PCS; 2024-01-03)
DX: K57.11 Diverticulosis of small intestine without perforation or abscess with bleeding (principal); D62 Acute posthemorrhagic anemia; K22.10 Ulcer of esophagus without bleeding; E66.01 Morbid (severe) obesity due to excess calories; I10 Essential (primary) hypertension; J45.990 Exercise induced bronchospasm; K76.0 Fatty (change of) liver, not elsewhere classified; K26.9 Duodenal ulcer, unspecified as acute or chronic, without hemorrhage or perforation; E78.00 Pure hypercholesterolemia, unspecified; I25.10 Atherosclerotic heart disease of native coronary artery without angina pectoris; Z95.1 Presence of aortocoronary bypass graft; I44.7 Left bundle-branch block, unspecified; G47.33 Obstructive sleep apnea (adult) (pediatric); K31.89 Other diseases of stomach and duodenum; K44.9 Diaphragmatic hernia without obstruction or gangrene; M19.90 Unspecified osteoarthritis, unspecified site; N32.81 Overactive bladder; T39.395A Adverse effect of other nonsteroidal anti-inflammatory drugs [NSAID], initial encounter; Z79.82 Long term (current) use of aspirin; Z79.899 Other long term (current) drug therapy; Z87.19 Personal history of other diseases of the digestive system; Z86.0100 Personal history of colon polyps, unspecified; Z90.49 Acquired absence of other specified parts of digestive tract; Z87.442 Personal history of urinary calculi; Z85.46 Personal history of malignant neoplasm of prostate; Z90.79 Acquired absence of other genital organ(s); Z87.891 Personal history of nicotine dependence
CPT/HCPCS: 36415; 80048; 80053; 85018; 85025; 85027; 85610; 85730; 86850; 86900; 86901; 86920; 90662; 96361; 96374; 99285; G0008; P9016

== ENCOUNTER → 2024-02-19 10:29 | Outpatient (REF) | payer MEDICARE, BC, SELFPAY ==
[2024-02-19 12:00] LABS: % Basophils 0.6 % (0-2); % Eosinophils 1.3 % (0-6); % Immature Granulocytes 0.3 % (0-0.5); % Monocytes 8.6 % (1.7-9.3); % Neutrophils 74.2 % (42.2-75.2); Absolute Eosinophils 0.1 10^3/uL (0-0.7); Absolute Monocytes 0.6 10^3/uL (0.1-0.6); Absolute Neutrophils 5.2 10^3/uL (1.4-6.5); Hematocrit 37.1 % (39.0-52.0); Hemoglobin 11.6 g/dL (13.0-18.0); Mean Corp Hgb Conc. 31.3 g/dL (33.0-37.0); Mean Corpuscular Hgb 27.4 pg (27.0-31.0); Mean Corpuscular Volume 87.7 fL (80.0-94.0); Mean Platelet Volume 11.2 fL (7.4-10.4); Nucleated Red Blood Cells % 0 % (-); Platelet Count 217 10^3/uL (130-400); Red Blood Cell Count 4.23 10^6/uL (4.70-6.10); Red Cell Dist. Width 13.8 % (11.5-14.5); White Blood Cell Count 6.9 10^3/uL (4.8-10.8)
[2024-02-19 12:20] LABS: Uric Acid 4.3 mg/dl (3.5-8.5)
== END ==
LOC: RAD 10:29
PROVIDERS: ATTENDING PHYSICIAN Family Medicine
DX: M25.561 Pain in right knee (principal); M25.461 Effusion, right knee
CPT/HCPCS: 36415; 73564; 84550; 85025

== ENCOUNTER → 2024-03-14 07:59 | Outpatient (REF) | payer MEDICARE, BC, SELFPAY | LOC: RAD 07:59 | PROVIDERS: FAMILY PHYSICIAN Family Medicine | DX: M79.661 Pain in right lower leg (principal) | CPT/HCPCS: 93971 ==

== ENCOUNTER → 2024-05-13 08:38 | Outpatient (REF) | payer MEDICARE, BC, SELFPAY | LOC: RAD 08:38 | PROVIDERS: FAMILY PHYSICIAN Family Medicine | DX: Z01.818 Encounter for other preprocedural examination (principal) | CPT/HCPCS: 71046 ==

== ENCOUNTER → 2025-02-03 08:52 | Outpatient (REF) | payer MEDICARE, BC, SELFPAY | LOC: RCS 08:52 | PROVIDERS: ATTENDING PHYSICIAN Internal Medicine Interventional Cardiology; FAMILY PHYSICIAN Family Medicine | DX: I25.2 Old myocardial infarction (principal) | CPT/HCPCS: 93306; Q9950 ==